=== PATIENT | female | born 1995 | race Caucasian/White ===

== ENCOUNTER 2021-08-29 10:23 | Outpatient (CLI) | payer OTHER ==
[2021-08-29 13:26] VITALS: BP 130/81; PULSE 83; RESP 16; TEMP 98
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
== END 2021-08-29 13:20 | disposition home or self-care (01) ==
LOC: FBPOP 10:23
PROVIDERS: ATTEND Obstetrics & Gynecology
DX: O26.893 Other specified pregnancy related conditions, third trimester (principal); Z3A.30 30 weeks gestation of pregnancy
CPT/HCPCS: 59025; G0463; 99213

== ENCOUNTER → 2022-05-22 | Outpatient (CLI) | payer OTHER ==
--- NOTE | 2022-05-22 19:45 | XR ---
EXAMINATION TYPE: XR Hip Complete 2 views RT, XR knee 4V RT DATE OF EXAM: 05/22/2022 Comparison: None Clinical History: 26-year-old female M25.561 PAIN IN RIGHT KNEE Findings: Right hip: Coxa valgus noted. Possible chronic congenital finding. Either tiny os acetabuli or degenerative labr al ossification noted. Slight anterior femoral head neck junction osseous excrescence. Right hip join t space is maintained. No acute fracture, subluxation, dislocation. Right knee: No knee joint effusion. Extensor mechanism is intact. No acute fracture, subluxation, dislocation. Pa tella remains appropriately situated along the trochlear groove. Impression: 1. Right hip: Coxa valgus. Either a tiny os acetabuli or a degenerative labral ossification. Given an anterior femoral head neck junction osseous excrescence, correlate for any symptoms of femoral aceta bular impingement syndrome. 2. Right knee: No acute osseous abnormality seen.
== END | disposition home or self-care (01) ==
LOC: RADXRMAIN 15:07
PROVIDERS: ATTEND Nurse Practitioner Family
DX: M25.561 Pain in right knee (principal)
CPT/HCPCS: 73502

== ENCOUNTER → 2023-06-26 | Outpatient (CLI) | payer OTHER ==
--- NOTE | 2023-06-26 16:16 | XR ---
EXAMINATION TYPE: XR hand complete bilateral DATE OF EXAM: 06/26/2023 COMPARISON: NONE HISTORY: 27-year-old female R52 bilateral hand pain TECHNIQUE: 3 views each side FINDINGS: There is ulnar-sided soft tissue swelling greater on the right. No acute fracture, subluxat ion, or dislocation is seen. No marginal erosions are identified. No acute fracture, subluxation, or dislocation. IMPRESSION: Some ulnar-sided soft tissue swelling of both hands, more so on the right. No acute osseo us abnormality seen.
== END | disposition home or self-care (01) ==
LOC: RADXRMAIN 09:13
PROVIDERS: ATTEND Nurse Practitioner Family
DX: M79.89 Other specified soft tissue disorders (principal); M79.641 Pain in right hand; M79.642 Pain in left hand

== ENCOUNTER → 2023-11-17 | Outpatient (CLI) | payer OTHER ==
[2023-11-17 22:40] LABS: Basophils # (A) 0.05 X 10*3/uL (0.00-0.10); Basophils % (A) 0.7 %; Eosinophils # (A) 0.21 X 10*3/uL (0.04-0.35); Eosinophils % (A) 2.7 %; HCT 40.4 % (37.2-46.3); HGB 12.7 g/dL (12.0-15.0); Lymphocytes # (A) 1.69 X 10*3/uL (0.90-5.00); Lymphocytes % (A) 22.1 %; MCH 28.2 pg (27.0-32.0); MCHC 31.4 g/dL (32.0-37.0); MCV 89.8 FL (80.0-97.0); Mean Platelet Volume 12.4 FL (9.5-12.2); Monocytes # (A) 0.43 X 10*3/uL (0.20-1.00); Monocytes % (A) 5.6 %; NRBC Per 100 WBC 0 X 10*3/uL (0.00-0.01); Neutrophils # (A) 5.25 X 10*3/uL (1.80-7.70); Neutrophils % (A) 68.6 %; Platelet Count 226 X 10*3/uL (140-440); WBC 7.65 X 10*3/uL (4.50-10.00)
[2023-11-17 23:58] LABS: ALT 14 U/L (8-44); AST 16 U/L (13-35); Albumin 4.5 g/dL (3.8-4.9); Albumin/Globulin Ratio 2.05 Ratio (1.60-3.17); Alkaline Phosphatase 76 U/L (41-126); BUN/Creat Ratio 17.67 Ratio (12.00-20.00); Blood Urea Nitrogen 10.6 mg/dL (9.0-27.0); Calcium 9.2 mg/dL (8.7-10.3); Carbon Dioxide 24.8 mmol/L (21.6-31.8); Chloride 104 mmol/L (96-109); Globulin 2.2 g/dL (1.6-3.3); Glucose 77 mg/dL (70-110); Potassium 4.4 mmol/L (3.5-5.5); Sodium 141 mmol/L (135-145); Total Bilirubin 0.6 mg/dL (0.3-1.2); Total Protein 6.7 g/dL (6.2-8.2)
== END | disposition home or self-care (01) ==
LOC: LABWHC1 10:20
PROVIDERS: ATTEND Family Medicine
DX: E66.9 Obesity, unspecified (principal); L65.9 Nonscarring hair loss, unspecified
CPT/HCPCS: 36415; 80053; 82306; 82607; 82746; 83036; 84403; 85025

== ENCOUNTER 2023-11-22 21:48 | Observation (INO) | payer OTHER ==
--- NOTE | 2023-11-22 22:15 | ED ---
Abdominal Pain HPI - General Chief Complaint: Abdominal Pain Stated Complaint: left side pain NV abd pain Time Seen by Provider: 11/22/23 22:03 Source: patient Mode of arrival: ambulatory Limitations: no limitations - History of Present Illness Initial Comments: 28-year-old female presenting with chief complaint of left flank pain. Patient states that she had some pain that started yesterday subsided. The pain started again today around 2 PM. Is a sharp pain that wraps around to the abdomen. She has no history of kidney stones. No dysuria or hematuria. No fevers or chills. She admits to nausea and vomiting. She did try taking Tylenol at home for her pain. No radiculopathy. No loss of bowel or bladder control or saddle paresthesia. - Related Data Home Medications Medication Instructions Recorded Confirmed Dextroamphetamine/Amphetamine 5 mg PO BID 11/23/23 11/23/23 [Adderall] Previous Rx's Medication Instructions Recorded Oxybutynin ER [Ditropan XL] 10 mg PO DAILY #30 tab 11/25/23 Sulfamethox-Tmp 800-160Mg [Bactrim 1 tab PO Q12HR 10 Days #20 tab 11/25/23 DS 800-160 mg] Allergies Allergy/AdvReac Type Severity Reaction Status Date / Time No Known Allergies Allergy Verified 11/23/23 11:10 Review of Systems ROS Statement: Those systems with pertinent positive or pertinent negative responses have been documented in the HPI. ROS Other: All systems not noted in ROS Statement are negative. Past Medical History History of Any Multi-Drug Resistant Organisms: None Reported Smoking Status: Never smoker General Exam Limitations: no limitations General appearance: alert, in no apparent distress Head exam: Present: atraumatic, normocephalic Eye exam: Present: normal appearance, EOMI Neck exam: Present: normal inspection. Absent: meningismus Respiratory exam: Absent: respiratory distress Cardiovascular Exam: Present: regular rate Back exam: Present: normal inspection, CVA tenderness (L). Absent: CVA tenderness (R), paraspinal tenderness Neurological exam: Present: alert, oriented X3 Psychiatric exam: Present: normal affect, normal mood Skin exam: Present: warm, dry Course Vital Signs 11/22/23 11/23/23 11/23/23 22:00 00:17 02:00 Temperature 97.8 F 98 F 98.0 F Pulse Rate 69 58 L 72 Respiratory 18 16 18 Rate Blood Pressure 124/81 107/62 130/66 O2 Sat by Pulse 98 100 100 Oximetry Medical Decision Making - Medical Decision Making Was pt. sent in by a medical professional or institution (FEI Whelan, ACADEMY EDUCATION DIRECTOR, urgent care, hospital, or fci...) When possible be specific @ -[No] Did you speak to anyone other than the patient for history (EMS, parent, family, police, friend...)? What history was obtained from this source @ -[No] Did you review nursing and triage notes (agree or disagree)? Why? @ -[I reviewed and agree with nursing and triage notes] Were old charts reviewed (outside hosp., previous admission, EMS record, old EKG, old radiological studies, urgent care reports/EKG's, fci records)? Report findings @ -[No old charts were reviewed] Differential Diagnosis (chest pain, altered mental status, abdominal pain women, abdominal pain men, vaginal bleeding, weakness, fever, dyspnea, syncope, headache, dizziness, GI bleed, back pain, seizure, CVA, palpatations, mental health, musculoskeletal)? @ -MDM Differential Abdominal Pain Women: Appendicitis, Cholecystitis, diverticulosis, ischemic bowel, pancreatitis, hepatitis, UTI, gastroenteritis, AAA, incarcerated hernia, bowel obstruction, constipation, inflammatory bowel, hepatitis, peptic ulcer disease, splenic infarction, perforated viscus, vulvitis, ovarian torsion, PID, kidney stone, placenta abruption... This is not meant to be an all-inclusive list EKG interpreted by me (3pts min.). @ -[As above] X-rays interpreted by me (1pt min.). @ -[None done] CT interpreted by me (1pt min.). @ -CT shows obstructing 8 mm stone in the left UPJ. Mild hydronephrosis of the left kidney with left-sided perinephritic stranding U/S interpreted by me (1pt. min.). @ -[None done] What testing was considered but not performed or refused? (CT, X-rays, U/S, labs)? Why? @ -[None] What meds were considered but not given or refused? Why? @ -[None] Did you discuss the management of the patient with other professionals (professionals i.e. FEI Whelan, ACADEMY EDUCATION DIRECTOR, lab, RT, psych nurse, social media executive, lawyer criminal, teacher, conservation officer, heel caser)? Give summary @ -My attending spoke with the admitting physician Was smoking cessation discussed for >3mins.? @ -[No] Was critical care preformed (if so, how long)? @ -[No] Were there social determinants of health that impacted care today? How? (Homelessness, low income, unemployed, alcoholism, drug addiction, transportation, low edu. Level, literacy, decrease access to med. care, penitentiary, rehab)? @ -[No] Was there de-escalation of care discussed even if they declined (Discuss DNR or withdrawal of care, Hospice)? DNR status @ -[No] What co-morbidities impacted this encounter? (DM, HTN, Smoking, COPD, CAD, Cancer, CVA, ARF, Chemo, Hep., AIDS, mental health diagnosis, sleep apnea, morbid obesity)? @ -[None] Was patient admitted / discharged? Hospital course, mention meds given and route, prescriptions, significant lab abnormalities, going to OR and other pertinent info. @ -28-year-old female presenting with chief complaint of left-sided flank pain that started yesterday. Admits to nausea and vomiting. History and physical exam are conducted. Urine shows greater than [address] is positive for obstructing 8 mm stone to the side. Will be admitted for evaluation by urology. She is started on Rocephin. Urine culture sent. Patient is agreeable with this plan. I discussed this case with my attending Dr. Lyon. Undiagnosed new problem with uncertain prognosis? @ -[No] Drug Therapy requiring intensive monitoring for toxicity (Heparin, Nitro, Insulin, Cardizem)? @ -[No] Were any procedures done? @ -[No] Diagnosis/symptom? @ -Kidney stone, pyelonephritis Acute, or Chronic, or Acute on Chronic? @ -Acute Uncomplicated (without systemic symptoms) or Complicated (systemic symptoms)? @ -Complicated Side effects of treatment? @ -[No] Exacerbation, Progression, or Severe Exacerbation? @ -[No] Poses a threat to life or bodily function? How? (Chest pain, USA, MT, pneumonia, PE, COPD, DKA, ARF, appy, cholecystitis, CVA, Diverticulitis, Homicidal, Suicidal, threat to staff... and all critical care pts) @ -Yes - Lab Data Result diagrams: 11/25/23 09:31 11/25/23 09:31 Lab Results 11/23/23 11/23/23 11/23/23 Range/Units 00:02 00:02 01:14 WBC 16.7 H (3.8-10.6) k/uL RBC 4.04 (3.80-5.40) m/uL Hgb 12.0 (11.4-16.0) gm/dL Hct 35.9 (34.0-46.0) % MCV 89.0 (80.0-100.0) fL MCH 29.7 (25.0-35.0) pg MCHC 33.3 (31.0-37.0) g/dL RDW 12.4 (11.5-15.5) % Plt Count 166 (150-450) k/uL MPV 10.4 Neutrophils % 90 % Lymphocytes % 4 % Monocytes % 5 % Eosinophils % 1 % Basophils % 0 % Neutrophils # 15.0 H (1.3-7.7) k/uL Lymphocytes # 0.6 L (1.0-4.8) k/uL Monocytes # 0.8 (0-1.0) k/uL Eosinophils # 0.1 (0-0.7) k/uL Basophils # 0.0 (0-0.2) k/uL Sodium 134 L (137-145) mmol/L Potassium 3.9 (3.5-5.1) mmol/L Chloride 104 (98-107) mmol/L Carbon Dioxide 27 (22-30) mmol/L Anion Gap 3 mmol/L BUN 16 (7-17) mg/dL Creatinine 0.70 (0.52-1.04) mg/dL Est GFR (CKD-EPI)AfAm >90 (>60 ml/min/1.73 sqM) Est GFR (CKD-EPI)NonAf >90 (>60 ml/min/1.73 sqM) Glucose 114 H (74-99) mg/dL Calcium 9.2 (8.4-10.2) mg/dL Total Bilirubin 0.6 (0.2-1.3) mg/dL AST 20 (14-36) U/L ALT 16 (4-34) U/L Alkaline Phosphatase 79 (38-126) U/L Total Protein 6.2 L (6.3-8.2) g/dL Albumin 3.9 (3.5-5.0) g/dL Urine Color Light Yellow Urine Appearance Cloudy H (Clear) Urine pH 5.5 (5.0-8.0) Ur Specific [place] 1.022 (1.001-1.035) Urine Protein Trace H (Negative) Urine Glucose (UA) Negative (Negative) Urine Ketones 2+ H (Negative) Urine Blood Negative (Negative) Urine Nitrite Negative (Negative) Urine Bilirubin Negative (Negative) Urine Urobilinogen <2.0 (<2.0) mg/dL Ur Leukocyte Esterase Large H (Negative) Urine RBC 2 (0-5) /hpf Urine WBC >182 H (0-5) /hpf Ur Squamous Epith Cells 7 H (0-4) /hpf Amorphous Sediment Rare H (None) /hpf Urine Bacteria Rare H (None) /hpf Hyaline Casts 1 (0-2) /lpf Urine Mucus Rare H (None) /hpf Urine HCG, Qual (Not Detectd) 11/23/23 Range/Units 01:14 WBC (3.8-10.6) k/uL RBC (3.80-5.40) m/uL Hgb (11.4-16.0) gm/dL Hct (34.0-46.0) % MCV (80.0-100.0) fL MCH (25.0-35.0) pg MCHC (31.0-37.0) g/dL RDW (11.5-15.5) % Plt Count (150-450) k/uL MPV Neutrophils % % Lymphocytes % % Monocytes % % Eosinophils % % Basophils % % Neutrophils # (1.3-7.7) k/uL Lymphocytes # (1.0-4.8) k/uL Monocytes # (0-1.0) k/uL Eosinophils # (0-0.7) k/uL Basophils # (0-0.2) k/uL Sodium (137-145) mmol/L Potassium (3.5-5.1) mmol/L Chloride (98-107) mmol/L Carbon Dioxide (22-30) mmol/L Anion Gap mmol/L BUN (7-17) mg/dL Creatinine (0.52-1.04) mg/dL Est GFR (CKD-EPI)AfAm (>60 ml/min/1.73 sqM) Est GFR (CKD-EPI)NonAf (>60 ml/min/1.73 sqM) Glucose (74-99) mg/dL Calcium (8.4-10.2) mg/dL Total Bilirubin (0.2-1.3) mg/dL AST (14-36) U/L ALT (4-34) U/L Alkaline Phosphatase (38-126) U/L Total Protein (6.3-8.2) g/dL Albumin (3.5-5.0) g/dL Urine Color Urine Appearance (Clear) Urine pH (5.0-8.0) Ur Specific [place] (1.001-1.035) Urine Protein (Negative) Urine Glucose (UA) (Negative) Urine Ketones (Negative) Urine Blood (Negative) Urine Nitrite (Negative) Urine Bilirubin (Negative) Urine Urobilinogen (<2.0) mg/dL Ur Leukocyte Esterase (Negative) Urine RBC (0-5) /hpf Urine WBC (0-5) /hpf Ur Squamous Epith Cells (0-4) /hpf Amorphous Sediment (None) /hpf Urine Bacteria (None) /hpf Hyaline Casts (0-2) /lpf Urine Mucus (None) /hpf Urine HCG, Qual Not Detected (Not Detectd) Disposition Clinical Impression: Kidney stone, Pyelonephritis Disposition: ADMITTED IP TO THIS [facility] Condition: Good Time of Disposition: 01:54
[2023-11-22] MEDS: KETOROLAC 15 MG/ML 1 ML VIAL IVP STA (23:40)
[2023-11-22] MEDS: ONDANSETRON 4 MG/2 ML VIAL IVP STA (23:42)
[2023-11-22] MEDS: SODIUM CHLORIDE 0.9% 1,000 ML IV ONE (23:47)
--- NOTE | 2023-11-23 00:34 | CT ---
EXAM: CT Abdomen and Pelvis Without Intravenous Contrast CLINICAL HISTORY: ITS.REASON CT Reason: L flank pain TECHNIQUE: Axial computed tomography images of the abdomen and pelvis without intravenous contrast. CTDI is 11.6 mGy and DLP is 656.6 mGy-cm. This CT exam was performed using one or more of the following dose reduction techniques: automated exposure control, adjustment of the mA and/or kV according to patient size, and/or use of iterative reconstruction technique. COMPARISON: No relevant prior studies available. FINDINGS: Lung bases: Unremarkable. No mass. No consolidation. ABDOMEN: Liver: Unremarkable. Gallbladder and bile ducts: Unremarkable. No calcified stones. No ductal dilation. Pancreas: Unremarkable. No ductal dilation. Spleen: Unremarkable. No splenomegaly. Adrenals: Unremarkable. No mass. Kidneys and ureters: Obstructing 8 mm stone in the left UPJ. Mild hydronephrosis of the left kidney with left-sided perinephric stranding. Nonobstructing 3 mm right mid pole renal stone. Stomach and bowel: Diverticulosis, without acute diverticulitis. No small bowel obstruction. No free intraperitoneal air. PELVIS: Appendix: Normal appendix. Bladder: Decompressed urinary bladder. No stones. Reproductive: Unremarkable as visualized. ABDOMEN and PELVIS: Intraperitoneal space: Unremarkable. No free air. No significant fluid collection. Bones/joints: No acute fracture. No dislocation. Soft tissues: Unremarkable. Vasculature: Unremarkable. No abdominal aortic aneurysm. Lymph nodes: Unremarkable. No enlarged lymph nodes. IMPRESSION: Obstructing 8 mm stone in the left UPJ. Mild hydronephrosis of the left kidney with left-sided perinephric stranding.
[2023-11-23 00:35] LABS: Basophils % (A) 0 %; Eosinophils # (A) 0.1 k/uL (0-0.7); Eosinophils % (A) 1 %; HCT 35.9 % (34.0-46.0); Lymphocytes # (A) 0.6 k/uL (1.0-4.8); Lymphocytes % (A) 4 %; MCH 29.7 pg (25.0-35.0); MCHC 33.3 g/dL (31.0-37.0); Mean Platelet Volume 10.4; Monocytes # (A) 0.8 k/uL (0-1.0); Monocytes % (A) 5 %; Neutrophils % (A) 90 %; Platelet Count 166 k/uL (150-450); RBC 4.04 m/uL (3.80-5.40); RDW 12.4 % (11.5-15.5); WBC 16.7 k/uL (3.8-10.6)
[2023-11-23 00:55] LABS: ALT 16 U/L (4-34); AST 20 U/L (14-36); African American GFR (CKD) >90 (>60 ml/min/1.73 sqM); Albumin 3.9 g/dL (3.5-5.0); Alkaline Phosphatase 79 U/L (38-126); Anion Gap 3 mmol/L; Blood Urea Nitrogen 16 mg/dL (7-17); Calcium 9.2 mg/dL (8.4-10.2); Carbon Dioxide 27 mmol/L (22-30); Chloride 104 mmol/L (98-107); Glucose 114 mg/dL (74-99); Non-African American GFR(CKD) >90 (>60 ml/min/1.73 sqM); Potassium 3.9 mmol/L (3.5-5.1); Sodium 134 mmol/L (137-145); Total Bilirubin 0.6 mg/dL (0.2-1.3); Total Protein 6.2 g/dL (6.3-8.2)
[2023-11-23] MEDS: TAMSULOSIN 0.4 MG CAP.ER.24H PO STA (01:11)
[2023-11-23] MEDS: SODIUM CHLORIDE 0.9% 1,000 ML IV ONE ×2 (01:11→11:51)
[2023-11-23] MEDS: MORPHINE SULFATE 4 MG/ML SYRINGE IVP STA (01:20)
[2023-11-23] MEDS: MORPHINE SULFATE 2 MG/ML SYRINGE IVP STA (01:21)
[2023-11-23 01:29] LABS: Amorphous Sediment,Urine Rare /hpf; Appearance,Urine Cloudy (Clear); Bacteria,Urine Rare /hpf; Bilirubin,Urine Negative (Negative); Blood,Urine Negative (Negative); Color,Urine Light Yellow; Glucose,Urine (UA) Negative (Negative); Hyaline Casts,Urine 1 /lpf (0-2); Ketones,Urine 2+ (Negative); Leukocyte Esterase,Urine Large (Negative); Mucus,Urine Rare /hpf; Nitrite,Urine Negative (Negative); PH, Urine 5.5 (5.0-8.0); Protein,Urine Trace (Negative); RBC,Urine 2 /hpf (0-5); Specific Gravity,Urine 1.022 (1.001-1.035); Squamous Epithelial Cell,Urine 7 /hpf (0-4); Urobilinogen,Urine <2.0 mg/dL (<2.0); WBC,Urine >182 /hpf (0-5)
[2023-11-23] MEDS ORDERED: cefTRIAXone IN SWFI 1,000 MG/10 ML SYRINGE IVP STA (01:38)
[2023-11-23] MEDS: SODIUM CHLORIDE 0.9% 1,000 ML IV SCH (01:49)
[2023-11-23] MEDS: cefTRIAXone IN SWFI 1,000 MG/10 ML SYRINGE IVP STA (02:19)
[2023-11-23] MEDS ORDERED: ONDANSETRON 4 MG/2 ML VIAL IVP PRN (02:58)
[2023-11-23] MEDS ORDERED: NALOXONE 0.4 MG/ML 1 ML VIAL IV PRN (02:58)
[2023-11-23] MEDS: KETOROLAC 15 MG/ML 1 ML VIAL IVP PRN (04:27)
[2023-11-23] MEDS: ACETAMINOPHEN IV (For NPO) 1,000 MG in EMPTY BAG 1 BAG IVPB PRN (05:51)
[2023-11-23] MEDS: IV FLUID CONTINUATION 1,000 ML IV ONE ×2 (07:09)
[2023-11-23] MEDS: LACTATED RINGERS 1,000 ML IV ONE ×3 (07:25→09:55)
[2023-11-23] MEDS: ONDANSETRON 4 MG/2 ML VIAL IVP ONE (07:29)
[2023-11-23] MEDS: DEXAMETHASONE SOD PHOSPHATE 4 MG/ML 1 ML VIAL IVP ONE (07:31)
[2023-11-23] MEDS: SCOPOLAMINE 1 MG/72 HR PATCH TRANSDERM ONE (07:31)
--- NOTE | 2023-11-23 07:35 | P.GSHP ---
History of Present Illness H&P Date: 11/23/23 Chief Complaint: Left ureteral stone This is a 28-year-old female that was admitted last night with intractable left- sided flank pain secondary to an 8 mm left ureteral stone. She indicated pain is associated with nausea and vomiting. Denied any dysuria or gross hematuria. No previous history of kidney stone in the ER she underwent a CT abdomen pelvis that showed a 8 mm left-sided proximal ureteral stone with hydronephrosis. Urine analysis on presentation was concerning for UTI. This morning she spiked a fever of 103 and was tachycardic at 116. She is still having left flank pain this morning - Constitutional Constitutional: Reports chills, Reports fever, Reports weakness - EENT Ears, nose, mouth and throat: Denies headache, Denies sore throat - Cardiovascular Cardiovascular: Denies chest pain, Denies shortness of breath - Respiratory Respiratory: Denies cough, Denies 7 - Gastrointestinal Gastrointestinal: Reports abdominal pain, Reports nausea, Reports vomiting - Genitourinary (Female) Genitourinary: Reports flank pain, Denies dysuria, Denies hematuria - Musculoskeletal Musculoskeletal: Denies myalgias Past Medical History Past Medical History: Asthma History of Any Multi-Drug Resistant Organisms: None Reported Past Surgical History: Section, Orthopedic Surgery Additional Past Surgical History / Comment(s): right foot surgery Past Anesthesia/Blood Transfusion Reactions: No Reported Reaction Smoking Status: Never smoker Medications and Allergies Home Medications Medication Instructions Recorded Confirmed Type Pnv No.95/Ferrous Fum/Folic AC 1 tablet PO DAILY 08/29/21 08/29/21 History [ Multivitamin Tablet] Sertraline [Zoloft] 25 mg PO DAILY 08/29/21 08/29/21 History Allergies Allergy/AdvReac Type Severity Reaction Status Date / Time No Known Allergies Allergy Verified 11/22/23 22:02 Surgical - Exam Vital Signs Temp Pulse Resp BP Pulse Ox 97.8 F 69 18 124/81 98 11/22/23 22:00 11/22/23 22:00 11/22/23 22:00 11/22/23 22:00 11/22/23 22:00 - General no distress, moderate pain - Eyes normal ocular movement, no pale - ENT normal nares, normal mucosa - Respiratory normal expansion, normal respiratory effort - Abdomen Abdomen: soft, tender, no distended - Psychiatric oriented to time, oriented to person, oriented to place Results - Labs 11/23/23 00:02 11/23/23 00:02 Abnormal Lab Results - Last 24 Hours (Table) 11/23/23 11/23/23 11/23/23 Range/Units 00:02 00:02 01:14 WBC 16.7 H (3.8-10.6) k/uL Neutrophils # 15.0 H (1.3-7.7) k/uL Lymphocytes # 0.6 L (1.0-4.8) k/uL Sodium 134 L (137-145) mmol/L Glucose 114 H (74-99) mg/dL Total Protein 6.2 L (6.3-8.2) g/dL Urine Appearance Cloudy H (Clear) Urine Protein Trace H (Negative) Urine Ketones 2+ H (Negative) Ur Leukocyte Esterase Large H (Negative) Urine WBC >182 H (0-5) /hpf Ur Squamous Epith Cells 7 H (0-4) /hpf Amorphous Sediment Rare H (None) /hpf Urine Bacteria Rare H (None) /hpf Urine Mucus Rare H (None) /hpf Diabetes panel 11/23/23 Range/Units 00:02 Sodium 134 L (137-145) mmol/L Potassium 3.9 (3.5-5.1) mmol/L Chloride 104 (98-107) mmol/L Carbon Dioxide 27 (22-30) mmol/L BUN 16 (7-17) mg/dL Creatinine 0.70 (0.52-1.04) mg/dL Glucose 114 H (74-99) mg/dL Calcium 9.2 (8.4-10.2) mg/dL AST 20 (14-36) U/L ALT 16 (4-34) U/L Alkaline Phosphatase 79 (38-126) U/L Total Protein 6.2 L (6.3-8.2) g/dL Albumin 3.9 (3.5-5.0) g/dL Calcium panel 11/23/23 Range/Units 00:02 Calcium 9.2 (8.4-10.2) mg/dL Albumin 3.9 (3.5-5.0) g/dL Pituitary panel 11/23/23 Range/Units 00:02 Sodium 134 L (137-145) mmol/L Potassium 3.9 (3.5-5.1) mmol/L Chloride 104 (98-107) mmol/L Carbon Dioxide 27 (22-30) mmol/L BUN 16 (7-17) mg/dL Creatinine 0.70 (0.52-1.04) mg/dL Glucose 114 H (74-99) mg/dL Calcium 9.2 (8.4-10.2) mg/dL Adrenal panel 11/23/23 Range/Units 00:02 Sodium 134 L (137-145) mmol/L Potassium 3.9 (3.5-5.1) mmol/L Chloride 104 (98-107) mmol/L Carbon Dioxide 27 (22-30) mmol/L BUN 16 (7-17) mg/dL Creatinine 0.70 (0.52-1.04) mg/dL Glucose 114 H (74-99) mg/dL Calcium 9.2 (8.4-10.2) mg/dL Total Bilirubin 0.6 (0.2-1.3) mg/dL AST 20 (14-36) U/L ALT 16 (4-34) U/L Alkaline Phosphatase 79 (38-126) U/L Total Protein 6.2 L (6.3-8.2) g/dL Albumin 3.9 (3.5-5.0) g/dL Assessment and Plan Assessment: 28-year-old female with sepsis secondary to an 8 mm left-sided proximal ureteral stone. Discussed with her given the obstructing stone in the UTI and sepsis I do recommend proceeding with stent insertion. Risk benefit and rationale of surgery was discussed in detail. Discussed she will eventually require left- sided ureteroscopy with holmium laser and stent removal as an outpatient once her UTI resolves -Keep n.p.o. -OR for cystoscopy and left-sided stent insertion
[2023-11-23] MEDS ORDERED: fentaNYL (PF) 50 MCG/ML 2 ML AMP ONE (07:41)
[2023-11-23] MEDS ORDERED: KETAMINE HCL IN 0.9 % NACL 50 MG/5 ML SYRINGE ONE (07:41)
[2023-11-23] MEDS ORDERED: MIDAZOLAM 2 MG/2 ML VIAL ONE (07:41)
[2023-11-23] MEDS ORDERED: PROPOFOL 10 MG/ML 20 ML VIAL IV ONE (07:41)
--- NOTE | 2023-11-23 08:12 | P.OP ---
Date of Procedure: 11/23/23 Preoperative Diagnosis: Left ureteral stone, UTI Postoperative Diagnosis: Same Procedure(s) Performed: Cystoscopy and left stent insertion Implants: 6 Tamazight by 26 cm stent in the left ureter Anesthesia: MAC Surgeon: Augie Bolivar Estimated Blood Loss (ml): 1 Pathology: none sent Condition: stable Disposition: PACU Indications for Procedure: 28-year-old female with sepsis secondary to an 8 mm left-sided proximal ureteral stone. Discussed with her given the obstructing stone in the UTI and sepsis I do recommend proceeding with stent insertion. Risk benefit and rationale of surgery was discussed in detail. Discussed she will eventually require left- sided ureteroscopy with holmium laser and stent removal as an outpatient once her UTI resolves Operative Findings: Cloudy urine drained from the left collecting system Description of Procedure: Patient brought to the operating room, sedation was induced. She was prepped and draped in sterile fashion placed in dorsolithotomy position. Cystoscopy fitted with a 21 Tamazight sheath was inserted per urethra, brief cystoscopy was performed showed no abnormality within the bladder. Attention was then carried to the left ureteral orifice which was intubated with a sensor wire, the wire was advanced under fluoroscopy into the kidney. Next a ureteral stent was passed over the wire, the proximal curl was visualized on fluoroscopy and the distal curl was visualized using the cystoscope. Cloudy urine drained from the collecting system. Patient was awakened from anesthesia and taken to recovery in stable condition
--- NOTE | 2023-11-23 09:34 | FL ---
EXAMINATION TYPE: FL guidance operating room Intraoperative/procedural fluoroscopic services were pro vided. Total fluoroscopy time is 2.1 seconds with a total of 2 submitted images to PACS. Please see t he operative/procedural note for further details. DAP: 0.2204 Gycm2
--- NOTE | 2023-11-23 12:54 | P.CONS ---
History of Present Illness - History of Present Illness Patient is a pleasant 28 years old female. Patient presents because of left flank pain for about 2 days duration, pain was more severe on admission however currently she rated about 3/10 felt like sharp or nonspecific. Also patient on admission was febrile of 101 overnight and she was hypotensive, currently systolic blood pressure is 80s to 90s She is fully awake and oriented though She denies chest pain or dyspnea, she had diarrhea yesterday but stopped now and no abdominal pain. No headache dizziness weakness or numbness. No dyspnea or coughing. She denies smoking alcohol or illicit drugs. On admission she has leukocytosis of 16.7, BMP and liver enzymes were unrem arkable. Urine analysis is showing evidence of infection Urine hCG is negative she has CT of the abdomen and pelvis with contrast:.Showing obstructing 8 mm stone in the left ureteropelvic junction. Also there is some evidence of mild left-sided hydronephrosis and left-sided perinephric stranding Patient evaluated by urology service and patient underwent Cystoscopy and left stent insertion today and patient tolerated the procedure well. Patient was started on ceftriaxone 2 g. And because of fever and hypertension medical service were consulted Patient received 4 L of normal saline today Review of Systems Review of systems CONSTITUTIONAL: No fever, no malaise, no fatigue. HEENT: No recent visual problems or hearing problems. Denied any sore throat. CARDIOVASCULAR: No orthopnea, PND, no palpitations, no syncope. PULMONARY: No shortness of breath, no cough, no hemoptysis. GASTROINTESTINAL: No diarrhea, no nausea, no vomiting, no abdominal pain. Normo active bowel sounds. NEUROLOGICAL: No headaches, no weakness, no numbness. HEMATOLOGICAL: Denies any bleeding or petechiae. GENITOURINARY: Denies any burning micturition, frequency, or urgency. MUSCULOSKELETAL/RHEUMATOLOGICAL: Denies any joint pain, swelling, or any muscle pain. ENDOCRINE: Denies any polyuria or polydipsia. Past Medical History Past Medical History: Asthma History of Any Multi-Drug Resistant Organisms: None Reported Past Surgical History: Section, Orthopedic Surgery Additional Past Surgical History / Comment(s): right foot surgery Past Anesthesia/Blood Transfusion Reactions: No Reported Reaction Smoking Status: Never smoker Medications and Allergies Home Medications Medication Instructions Recorded Confirmed Type Dextroamphetamine/Amphetamine 5 mg PO BID 11/23/23 11/23/23 History [Adderall] Allergies Allergy/AdvReac Type Severity Reaction Status Date / Time No Known Allergies Allergy Verified 11/23/23 11:10 Physical Exam Vitals: Vital Signs Temp Pulse Pulse Resp BP BP BP 11/23/23 12:03 71 11/23/23 11:52 68 88/55 11/23/23 11:31 56 L 85/56 11/23/23 11:16 62 87/58 11/23/23 11:14 56 L 88/58 11/23/23 11:01 63 85/56 11/23/23 10:48 76 89/42 11/23/23 10:32 98.0 F 67 16 90/60 11/23/23 10:03 63 12 11/23/23 09:48 65 12 11/23/23 09:33 65 13 100/50 11/23/23 09:18 69 11 L 11/23/23 09:03 75 13 11/23/23 08:48 96 18 11/23/23 08:36 116 H 14 11/23/23 08:33 87 12 11/23/23 08:24 88 12 11/23/23 08:18 97.9 F 87 12 11/23/23 07:21 99.3 F 106 H 16 11/23/23 06:51 99.8 F H 109 H 16 77/42 11/23/23 05:26 103.0 F H 11/23/23 04:16 101.0 F H 115 H 16 11/23/23 02:00 98.0 F 72 18 130/66 11/23/23 00:17 98 F 58 L 16 107/62 11/22/23 22:00 97.8 F 69 18 124/81 BP Pulse Ox 11/23/23 12:03 95/66 11/23/23 11:52 11/23/23 11:31 98 11/23/23 11:16 98 11/23/23 11:14 97 11/23/23 11:01 97 11/23/23 10:48 97 11/23/23 10:32 99 11/23/23 10:03 83/45 97 11/23/23 09:48 94/55 97 11/23/23 09:33 84/53 96 11/23/23 09:18 89/54 96 11/23/23 09:03 87/50 92 L 11/23/23 08:48 86/49 96 11/23/23 08:36 84/47 99 11/23/23 08:33 84/48 99 11/23/23 08:24 86/50 99 11/23/23 08:18 78/43 99 11/23/23 07:21 94/52 95 11/23/23 06:51 88/50 95 11/23/23 05:26 11/23/23 04:16 116/63 98 11/23/23 02:00 100 11/23/23 00:17 100 11/22/23 22:00 98 Intake and Output 11/22/23 11/23/23 11/23/23 22:59 06:59 14:59 Intake Total 900 3400 Balance 900 3400 Intake: IV 3400 Intake, IV Titration 900 Amount ACETAMINOPHEN IV (For NPO 100 ) 1,000 mg In Empty Bag 1 bag @ 400 mls/hr IVPB Q6HR PRN Rx#:[id number] Sodium Chloride 0.9% 1, 800 000 ml @ 130 mls/hr IV . Q7H42M [facility] Rx#:[id number] Other: # Voids 1 Weight 90.718 kg 90.718 kg GENERAL: The patient is alert and oriented x3, not in any acute distress. Well developed, well nourished. HEENT: Pupils are round and equally reacting to light. EOMI. No scleral icterus. No conjunctival pallor. Normocephalic, atraumatic. No pharyngeal erythema. No thyromegaly. CARDIOVASCULAR: S1 and S2 present. No murmurs, rubs, or gallops. PULMONARY: Chest is clear to auscultation, no wheezing , no crackles. ABDOMEN: Soft, nontender, nondistended, normoactive bowel sounds. No palpable organomegaly. MUSCULOSKELETAL: No joint swelling or deformity. EXTREMITIES: No cyanosis, clubbing, or pedal edema. NEUROLOGICAL: Gross neurological examination did not reveal any focal deficits. SKIN: No rashes. no petechiae. Results CBC & Chem 7: 11/23/23 00:02 11/23/23 00:02 Labs: Abnormal Lab Results - Last 24 Hours (Table) 11/23/23 11/23/23 11/23/23 Range/Units 00:02 00:02 01:14 WBC 16.7 H (3.8-10.6) k/uL Neutrophils # 15.0 H (1.3-7.7) k/uL Lymphocytes # 0.6 L (1.0-4.8) k/uL Sodium 134 L (137-145) mmol/L Glucose 114 H (74-99) mg/dL Total Protein 6.2 L (6.3-8.2) g/dL Urine Appearance Cloudy H (Clear) Urine Protein Trace H (Negative) Urine Ketones 2+ H (Negative) Ur Leukocyte Esterase Large H (Negative) Urine WBC >182 H (0-5) /hpf Ur Squamous Epith Cells 7 H (0-4) /hpf Amorphous Sediment Rare H (None) /hpf Urine Bacteria Rare H (None) /hpf Urine Mucus Rare H (None) /hpf Assessment and Plan Assessment: Severe acute urinary tract infection Obstructive 8 mm left ureteral stone with mild left hydronephrosis and left- sided perinephric stranding Sepsis, severe secondary to above. Present on admission Hypotension secondary to above Obesity with BMI of 32.3 Asthma, not an active issue. Plan: Continue with a aggressive fluid hydration Continue with normal saline 130 mL/h and monitor blood pressure and input and output Start midodrine x 2 days Continue with ceftriaxone and follow-up urine culture and blood culture Urology service team on the case already. Patient's status post stent placement to the left ureter Labs and medication were reviewed.. Continue same treatment. Continue with symptomatic treatment. Resume home medication. Monitor labs and vitals. DVT and GI prophylaxis. Further recommendations as per clinical course of the patient DVT prophylaxis: Subcutaneous heparin GI Prophylaxis: Pepcid PT/OT: Pending Prognosis is guarded
[2023-11-23] MEDS: MIDODRINE 5 MG TAB PO SCH (16:47)
[2023-11-23] MEDS: HEPARIN SODIUM,PORCINE 5,000 UNIT/ML 1 ML VIAL SQ SCH (20:01)
[2023-11-23] MEDS: FAMOTIDINE 20 MG/2 ML VIAL IV SCH (20:01)
[2023-11-24 09:17] LABS: Basophils # (A) 0.04 X 10*3/uL (0.00-0.10); Basophils % (A) 0.2 %; Eosinophils # (A) 0.08 X 10*3/uL (0.04-0.35); Eosinophils % (A) 0.5 %; HCT 31.6 % (37.2-46.3); HGB 10.1 g/dL (12.0-15.0); Lymphocytes # (A) 2.26 X 10*3/uL (0.90-5.00); Lymphocytes % (A) 13.6 %; MCH 29.2 pg (27.0-32.0); MCV 91.3 FL (80.0-97.0); Mean Platelet Volume 13.5 FL (9.5-12.2); Monocytes # (A) 0.89 X 10*3/uL (0.20-1.00); Monocytes % (A) 5.4 %; NRBC Per 100 WBC 0 X 10*3/uL (0.00-0.01); Neutrophils # (A) 13.21 X 10*3/uL (1.80-7.70); Neutrophils % (A) 79.8 %; Platelet Count 145 X 10*3/uL (140-440); RBC 3.46 X 10*6/uL (4.10-5.20); RDW 12.7 % (11.5-14.5); WBC 16.56 X 10*3/uL (4.50-10.00)
[2023-11-24 09:56] LABS: BUN/Creat Ratio 14.71 Ratio (12.00-20.00); Blood Urea Nitrogen 10.3 mg/dL (9.0-27.0); Calcium 7.9 mg/dL (8.7-10.3); Carbon Dioxide 20.7 mmol/L (21.6-31.8); Chloride 111 mmol/L (96-109); Glucose 91 mg/dL (70-110); Potassium 3.7 mmol/L (3.5-5.5); Sodium 142 mmol/L (135-145)
[2023-11-24] MEDS: polyethylene glycoL 3350 17 GM POWD.PACK PO SCH (10:38)
[2023-11-24] MEDS: ACETAMINOPHEN TAB 325 MG TAB PO PRN (10:38)
--- NOTE | 2023-11-24 12:03 | P.PN ---
Subjective Progress Note Date: 11/24/23 Status post left stent insertion for septic stone. Having mild left flank pain and bladder pressure. Denies any fevers or chills. Urine culture is growing gram-negative bacilli Objective - Vital Signs Vital signs: Vital Signs Temp 98.8 F 11/24/23 11:33 Pulse 78 11/24/23 11:33 Resp 18 11/24/23 11:33 BP 106/61 11/24/23 11:33 Pulse Ox 100 11/24/23 11:33 FiO2 Intake & Output 11/23/23 11/24/23 11/24/23 18:59 06:59 18:59 Intake Total 3400 Balance 3400 Intake: IV 3400 Other: Voiding Method Toilet Toilet # Voids 1 2 - Constitutional General appearance: Present: no acute distress - Gastrointestinal General gastrointestinal: Present: soft. Absent: distended, tenderness - Psychiatric Psychiatric: Present: A&O x's 3 - Labs CBC & Chem 7: 11/24/23 04:22 11/24/23 04:22 Labs: Abnormal Lab Results - Last 24 Hours (Table) 11/24/23 11/24/23 Range/Units 04:22 04:22 WBC 16.56 H (4.50-10.00) X 10*3/uL RBC 3.46 L (4.10-5.20) X 10*6/uL Hgb 10.1 L (12.0-15.0) g/dL Hct 31.6 L (37.2-46.3) % MPV 13.5 H (9.5-12.2) FL Immature Gran # 0.08 H (0.00-0.04) X 10*3/uL Neutrophils # 13.21 H (1.80-7.70) X 10*3/uL Chloride 111 H (96-109) mmol/L Carbon Dioxide 20.7 L (21.6-31.8) mmol/L Calcium 7.9 L (8.7-10.3) mg/dL Microbiology - Last 24 Hours (Table) 11/23/23 01:14 Urine Culture - Preliminary Urine,Voided Gram Neg Bacilli Assessment and Plan Assessment: 28-year-old female with 8 mm left-sided proximal stone status post left-sided stent insertion for septic stone. She is afebrile today and blood pressure is stable. Her urine culture is growing gram-negative bacilli -Will await final urine and blood culture, will plan on discharge once cultures finalized -Will start on Ditropan for bladder pressure -Will arrange for outpatient left-sided ureteroscopy with holmium laser and stent removal
[2023-11-24] MEDS: OXYBUTYNIN XL 5 MG TAB.ER.24 PO SCH ×2 (12:35→20:01)
[2023-11-24] MEDS: LACTATED RINGERS 1,000 ML IV SCH (12:36)
--- NOTE | 2023-11-24 18:56 | P.PN ---
Subjective Progress Note Date: 11/24/23 Patient is a pleasant 28 years old female. Patient presents because of left flank pain for about 2 days duration, pain was more severe on admission however currently she rated about 3/10 felt like sharp or nonspecific. Also patient on admission was febrile of 101 overnight and she was hypotensive, currently systolic blood pressure is 80s to 90s She is fully awake and oriented though She denies chest pain or dyspnea, she had diarrhea yesterday but stopped now and no abdominal pain. No headache dizziness weakness or numbness. No dyspnea or coughing. She denies smoking alcohol or illicit drugs. On admission she has leukocytosis of 16.7, BMP and liver enzymes were unremarkable. Urine analysis is showing evidence of infection Urine hCG is negative she has CT of the abdomen and pelvis with contrast :.Showing obstructing 8 mm stone in the left ureteropelvic junction. Also there is some evidence of mild left-sided hydronephrosis and left-sided perinephric stranding Patient evaluated by urology service and patient underwent Cystoscopy and left stent insertion today and patient tolerated the procedure well. Patient was started on ceftriaxone 2 g. And because of fever and hypertension medical service were consulted Patient received 4 L of normal saline today 11/24/2023 Patient is evaluated in follow-up today on the medical floor. She continues to report fullness in her suprapubic area as well as abdominal discomfort about 3-4 out of 10. She does not feel that she is completely emptying her bladder and a postvoid residual is done revealing 150 cc left in the urinary bladder. Patient is also reports having a good bowel movement over the last couple days and is requesting something to have a bowel movement and is given MiraLAX. Patient is status post left ureter stent for left-sided hydronephrosis and obstructive stone. Her urinalysis was abnormal patient is continued on IV ceftriaxone. Blood cultures remain negative and urinalysis is showing gram-negative bacilli. Review of Systems Constitutional: Denied any fatigue denied any fever. Cardio vascular: denied any chest pain, palpitations Gastrointestinal: denied any nausea, vomiting, diarrhea Pulmonary: Denied any shortness of breath cough Neurologic denied any new focal deficits All inpatient medications were reviewed and appropriate changes in these medications as dictated in the interval history and assessment and plan. PHYSICAL EXAMINATION: GENERAL: The patient is alert and oriented x3, not in any acute distress. Well developed, well nourished. HEENT: Pupils are round and equally reacting to light. EOMI. No scleral icterus. No conjunctival pallor. Normocephalic, atraumatic. No pharyngeal erythema. No thyromegaly. CARDIOVASCULAR: S1 and S2 present. No murmurs, rubs, or gallops. PULMONARY: Chest is clear to auscultation, no wheezing or crackles. ABDOMEN: Soft, nontender, nondistended, normoactive bowel sounds. No palpable organomegaly. MUSCULOSKELETAL: No joint swelling or deformity. EXTREMITIES: No cyanosis, clubbing, or pedal edema. NEUROLOGICAL: Gross neurological examination did not reveal any focal deficits. SKIN: No rashes. Assessment: Severe acute urinary tract infection Obstructive 8 mm left ureteral stone with mild left hydronephrosis and left-brian ed perinephric stranding status post left ureter stent Sepsis, severe secondary to above. Present on admission Hypotension secondary to above Obesity with BMI of 32.3 Asthma, not an active issue. GI prophylaxis DVT prophylaxis Full Code Plan: Due to the hyperchloremia we will adjust the fluids to LR at 75 mls/hr. Completed course of midodrine has been discontinued. Continue with ceftriaxone and follow-up urine culture and blood culture Urology service team on the case already. Patient's status post stent placement to the left ureter Continue to monitor post void residuals. Urology has started ditropan. Miralax daily for the constipation. DVT prophylaxis: Subcutaneous heparin GI Prophylaxis: Pepcid PT/OT: Pending Prognosis is guarded The impression and plan of care has been dictated by Judy Nichols, Nurse Practitioner as directed. Dr. Oral MD I have performed a history and physical examination and medical decision making of this patient, discussed the same with the dictator, and agree with the dictators assessment and plan as written, documented as a scribe. Based on total visit time, I have performed more than 50% of this visit. Objective - Vital Signs Vital signs: Vital Signs Temp 98.8 F 11/24/23 11:33 Pulse 78 11/24/23 11:33 Resp 18 11/24/23 11:33 BP 106/61 11/24/23 11:33 Pulse Ox 100 11/24/23 11:33 FiO2 Intake & Output 11/23/23 11/24/23 11/24/23 18:59 06:59 18:59 Intake Total 3400 600 Balance 3400 600 Intake: IV 3400 Intake, IV Titration 600 Amount Lactated Ringers 1,000 ml 600 @ 75 mls/hr IV .[id number] [facility] Rx#:[id number] Other: Voiding Method Toilet Toilet # Voids 1 2 - Labs CBC & Chem 7: 11/24/23 04:22 11/24/23 04:22 Labs: Abnormal Lab Results - Last 24 Hours (Table) 11/24/23 11/24/23 Range/Units 04:22 04:22 WBC 16.56 H (4.50-10.00) X 10*3/uL RBC 3.46 L (4.10-5.20) X 10*6/uL Hgb 10.1 L (12.0-15.0) g/dL Hct 31.6 L (37.2-46.3) % MPV 13.5 H (9.5-12.2) FL Immature Gran # 0.08 H (0.00-0.04) X 10*3/uL Neutrophils # 13.21 H (1.80-7.70) X 10*3/uL Chloride 111 H (96-109) mmol/L Carbon Dioxide 20.7 L (21.6-31.8) mmol/L Calcium 7.9 L (8.7-10.3) mg/dL Microbiology - Last 24 Hours (Table) 11/23/23 10:30 Blood Culture - Preliminary Blood 11/23/23 01:14 Urine Culture - Preliminary Urine,Voided Gram Neg Bacilli Assessment and Plan Time with Patient: Less than 30
[2023-11-24] MEDS: MORPHINE SULFATE 4 MG/ML SYRINGE IV PRN (22:51)
[2023-11-25 08:24] VITALS: RESP 18
[2023-11-25 10:14] LABS: Basophils % (A) 0 %; Eosinophils # (A) 0.1 k/uL (0-0.7); Eosinophils % (A) 2 %; HCT 34.7 % (34.0-46.0); HGB 10.5 gm/dL (11.4-16.0); Lymphocytes # (A) 1.6 k/uL (1.0-4.8); Lymphocytes % (A) 19 %; MCHC 30.2 g/dL (31.0-37.0); MCV 92.6 fL (80.0-100.0); Mean Platelet Volume 10.7; Monocytes # (A) 0.5 k/uL (0-1.0); Monocytes % (A) 6 %; Neutrophils # (A) 5.8 k/uL (1.3-7.7); Neutrophils % (A) 72 %; Platelet Count 157 k/uL (150-450); RBC 3.75 m/uL (3.80-5.40); RDW 12.6 % (11.5-15.5); WBC 8.1 k/uL (3.8-10.6)
[2023-11-25 10:26] LABS: African American GFR (CKD) >90 (>60 ml/min/1.73 sqM); Anion Gap 6 mmol/L; Blood Urea Nitrogen 7 mg/dL (7-17); Carbon Dioxide 22 mmol/L (22-30); Chloride 109 mmol/L (98-107); Glucose 109 mg/dL (74-99); Non-African American GFR(CKD) >90 (>60 ml/min/1.73 sqM); Potassium 3.8 mmol/L (3.5-5.1); Sodium 137 mmol/L (137-145)
--- NOTE | 2023-11-25 12:13 | XR ---
EXAMINATION TYPE: XR chest 2V DATE OF EXAM: 11/25/2023 COMPARISON: NONE HISTORY: Shortness of breath TECHNIQUE: Frontal and lateral views of the chest are obtained. FINDINGS: There are diffuse fluffy small airspace opacities consistent with diffuse inflammatory process. There are small bilateral pleural effusions. The heart size is normal in the pulmonary vasculature is not congested. There is no pneumothorax. The osseous structures are intact IMPRESSION: Acute cardiopulmonary disease as described above.
[2023-11-25 12:23] VITALS: BP 118/74; PULSE 79; TEMP 98.4
[2023-11-25] MEDS: FUROSEMIDE 10 MG/ML 4 ML VIAL IV STA (13:23)
--- NOTE | 2023-11-25 14:29 | P.DS ---
Providers Date of admission: 11/23/23 02:59 Attending physician: Augie Bolivar MD Consults: 11/23/23 11:44 Consult Physician Routine Consulting Provider: Bernabe Quach Consult Reason/Comments: UTI Do you want consulting provider notified?: Yes Primary care physician: Jose Chan [facility] Course: This is a 28-year-old female with a history of a left-sided ureteral stone, she presented to the hospital with sepsis secondary to her ureteral stone. Patient underwent left-sided stent insertion on November 22. She was admitted to the hospital postoperatively. Her urine culture did grow E. coli, blood cultures demonstrated no growth. She was discharged home on November 24, at time of discharge she was tolerating a diet, ambulating, pain was controlled. She was discharged home on 10-day course of Bactrim. She will be set up for a left-sided ureteroscopy with holmium laser and stent removal as an outpatient Patient Condition at Discharge: Fair Plan - Discharge Summary Discharge Rx Participant: No New Discharge Prescriptions: New Sulfamethox-Tmp 800-160Mg [Bactrim DS 800-160 mg] 1 tab PO Q12HR 10 Days #20 tab Oxybutynin ER [Ditropan XL] 10 mg PO DAILY #30 tab No Action Dextroamphetamine/Amphetamine [Adderall] 5 mg PO BID Discharge Medication List Dextroamphetamine/Amphetamine [Adderall] 5 mg PO BID 11/23/23 [History] Oxybutynin ER [Ditropan XL] 10 mg PO DAILY #30 tab 11/25/23 [Rx] Sulfamethox-Tmp 800-160Mg [Bactrim DS 800-160 mg] 1 tab PO Q12HR 10 Days #20 tab 11/25/23 [Rx] Follow up Appointment(s)/Referral(s): Augie Bolivar MD [STAFF PHYSICIAN] - 1 Week Jose Chan DO [Primary Care Provider] - 1-2 days Patient Instructions/Handouts: *[facility] - Cystoscopy Discharge Instructions, *[facility] - Scopalamine Patch Instructions, Ureteral Stent Placement (DC)
--- NOTE | 2023-11-25 15:49 | P.PN ---
Subjective Progress Note Date: 11/25/23 Patient is a pleasant 28 years old female. Patient presents because of left flank pain for about 2 days duration, pain was more severe on admission however currently she rated about 3/10 felt like sharp or nonspecific. Also patient on admission was febrile of 101 overnight and she was hypotensive, currently systolic blood pressure is 80s to 90s She is fully awake and oriented though She denies chest pain or dyspnea, she had diarrhea yesterday but stopped now and no abdominal pain. No headache dizziness weakness or numbness. No dyspnea or coughing. She denies smoking alcohol or illicit drugs. On admission she has leukocytosis of 16.7, BMP and liver enzymes were unremarkable. Urine analysis is showing evidence of infection Urine hCG is negative she has CT of the abdomen and pelvis with contrast :.Showing obstructing 8 mm stone in the left ureteropelvic junction. Also there is some evidence of mild left-sided hydronephrosis and left-sided perinephric stranding Patient evaluated by urology service and patient underwent Cystoscopy and left stent insertion today and patient tolerated the procedure well. Patient was started on ceftriaxone 2 g. And because of fever and hypertension medical service were consulted Patient received 4 L of normal saline today 11/24/2023 Patient is evaluated in follow-up today on the medical floor. She continues to report fullness in her suprapubic area as well as abdominal discomfort about 3-4 out of 10. She does not feel that she is completely emptying her bladder and a postvoid residual is done revealing 150 cc left in the urinary bladder. Patient is also reports having a good bowel movement over the last couple days and is requesting something to have a bowel movement and is given MiraLAX. Patient is status post left ureter stent for left-sided hydronephrosis and obstructive stone. Her urinalysis was abnormal patient is continued on IV ceftriaxone. Blood cultures remain negative and urinalysis is showing gram-negative bacilli. 11/25/2023 Patient is evaluated today in follow up. Has been started on ditropan with improvement in urinary outflow patient reports feeling less abdominal pressure. Her urine culture comes back positive for e.coli with some resistance noted on microsensitivities. Urology has recommended bactrim on discharge. Patient reports feeling short of breath and IV fluids were stopped a chest xray taken reveals small bilateral pleural effusions and patient will be given a dose of IV lasix for this. Patient is currently 98% on room air. Her white blood cell count has normalized to 8.1 today and renal function remains normal. Review of Systems Constitutional: Denied any fatigue denied any fever. Cardio vascular: denied any chest pain, palpitations Gastrointestinal: denied any nausea, vomiting, diarrhea Pulmonary: Denied any shortness of breath cough Neurologic denied any new focal deficits All inpatient medications were reviewed and appropriate changes in these medications as dictated in the interval history and assessment and plan. PHYSICAL EXAMINATION: GENERAL: The patient is alert and oriented x3, not in any acute distress. Well developed, well nourished. HEENT: Pupils are round and equally reacting to light. EOMI. No scleral icterus. No conjunctival pallor. Normocephalic, atraumatic. No pharyngeal erythema. No thyromegaly. CARDIOVASCULAR: S1 and S2 present. No murmurs, rubs, or gallops. PULMONARY: Chest is clear to auscultation, no wheezing or crackles. ABDOMEN: Soft, nontender, nondistended, normoactive bowel sounds. No palpable organomegaly. MUSCULOSKELETAL: No joint swelling or deformity. EXTREMITIES: No cyanosis, clubbing, or pedal edema. NEUROLOGICAL: Gross neurological examination did not reveal any focal deficits. SKIN: No rashes. Assessment: Severe acute urinary tract infection Obstructive 8 mm left ureteral stone with mild left hydronephrosis and left- sided perinephric stranding status post left ureter stent Sepsis, severe secondary to above. Present on admission Shortness of breath due to mild volume overload secondary to IV fluids. Chest xray reveals pleural effusions with no history of heart failure. Given a dose of IV lasix. Hypotension secondary to above Obesity with BMI of 32.3 Asthma, not an active issue. GI prophylaxis DVT prophylaxis Full Code Plan: hyperchloremia has resolved. Stop the IV fluids. Completed course of midodrine has been discontinued. Continue with ceftriaxone and follow-up urine culture completed. Urology recommending discharge on oral bactrim. Urology service team on the case already. Patient's status post stent placement to the left ureter Continue to monitor post void residuals. Urology has started ditropan. Give a dose of IV lasix and repeat BMP in the AM. Miralax daily for the constipation. DVT prophylaxis: Subcutaneous heparin GI Prophylaxis: Pepcid PT/OT: Pending Prognosis is guarded The impression and plan of care has been dictated by Judy Nichols Nurse Practitioner as directed. Dr. Oral MD I have performed a history and physical examination and medical decision making of this patient, discussed the same with the dictator, and agree with the dictators assessment and plan as written, documented as a scribe. Based on total visit time, I have performed more than 50% of this visit. Objective - Vital Signs Vital signs: Vital Signs Temp 98.4 F 11/25/23 11:25 Pulse 79 11/25/23 11:25 Resp 18 11/25/23 11:25 BP 118/74 11/25/23 11:25 Pulse Ox 98 11/25/23 11:25 FiO2 Intake & Output 11/24/23 11/25/23 11/25/23 18:59 06:59 18:59 Intake Total 600 Balance 600 Intake: Intake, IV Titration 600 Amount Lactated Ringers 1,000 ml 600 @ 75 mls/hr IV .[id number] [facility] Rx#:[id number] Other: Voiding Method Toilet Toilet Toilet # Voids 2 - Labs CBC & Chem 7: 11/25/23 09:31 11/25/23 09:31 Labs: Abnormal Lab Results - Last 24 Hours (Table) 11/25/23 11/25/23 Range/Units 09:31 09:31 RBC 3.75 L (3.80-5.40) m/uL Hgb 10.5 L (11.4-16.0) gm/dL MCHC 30.2 L (31.0-37.0) g/dL Chloride 109 H (98-107) mmol/L Creatinine 0.47 L (0.52-1.04) mg/dL Glucose 109 H (74-99) mg/dL Calcium 8.0 L (8.4-10.2) mg/dL Microbiology - Last 24 Hours (Table) 11/23/23 01:14 Urine Culture - Final Urine,Voided Escherichia coli 11/23/23 10:30 Blood Culture - Preliminary Blood Assessment and Plan Time with Patient: Less than 30
== END 2023-11-25 16:06 | disposition home or self-care (01) ==
LOC: EC 21:48 → 5NMEDONC 11-23 02:59
PROVIDERS: ADMIT Urology; ATTEND Urology
DX: N13.2 Hydronephrosis with renal and ureteral calculous obstruction (principal); N39.0 Urinary tract infection, site not specified; A41.9 Sepsis, unspecified organism; I95.9 Hypotension, unspecified; J45.909 Unspecified asthma, uncomplicated; E87.70 Fluid overload, unspecified; E66.9 Obesity, unspecified; Z68.32 Body mass index [BMI] 32.0-32.9, adult; Z79.899 Other long term (current) drug therapy
CPT/HCPCS: 96376 ×4; 96361 ×3; 96365; 96366 ×3; 96367; 96372 ×2; 96375 ×3; 99285; 36415; 80053; 80048 ×2; 85025 ×3; 81001; 81025; 87040; 87086; 87077; 87186; 71046; 74176; 52332; G0378 ×3; C2625; C1769; J2250; J2270 ×2; J1644 ×2; J1100; J1940; J0690; J2405 ×2; J0696 ×4; J3010; J3490 ×3; J0131; J1885 ×4; J2704

== ENCOUNTER 2023-12-04 11:53 | Day surgery (SDC) | payer OTHER ==
[~2023-12-04 11:53] MED LIST: HYDROmorphone 0.5 MG/0.5 ML SYRINGE IVP PRN; LIDOCAINE 1% (10MG/ML) FOR IV START INTRADERMA PRN; MIDAZOLAM 2 MG/2 ML VIAL IV PRN
[2023-12-04] MEDS: LACTATED RINGERS 1,000 ML IV SCH (12:25)
--- NOTE | 2023-12-04 12:25 | P.HPIHPCON ---
History of Present Illness H&P Date: 12/04/23 Chief Complaint: Left ureteral stone This is a 28-year-old female with a history of an 8 mm left-sided UPJ stone, patient had a UTI with intractable pain, underwent left-sided stent insertion on November 23. Patient presents today with definitive stone management. She has been o n antibiotics since that time. Option of left-sided ureteroscopy with holmium laser was discussed, aware the risk which includes but not limited to bleeding, infection, injury to the ureter Consent for Procedure: I have explained the operation/procedure to the patient, including the risks, benefits, side effects, alternative therapies (including not receiving the proposed treatment or service), the likelihood of the patient achieving his/her goals, and potential recuperation problems for the procedure/sedation/analgesia, as well as any blood products, if indicated. I also explained to the patient the risks, benefits and side effects of the alternatives, as well as the risks related to not receiving the proposed procedure, care, treatment, or services. Past Medical History Past Medical History: Asthma Additional Past Medical History / Comment(s): kidney stones. IBS History of Any Multi-Drug Resistant Organisms: None Reported Past Surgical History: Section, Orthopedic Surgery Additional Past Surgical History / Comment(s): right foot surgery Past Anesthesia/Blood Transfusion Reactions: No Reported Reaction, Motion Sickness Smoking Status: Never smoker - Past Family History Father Family Medical History: Deep Vein Thrombosis (DVT), Pulmonary Embolus Medications and Allergies Home Medications Medication Instructions Recorded Confirmed Type Dextroamphetamine/Amphetamine 5 mg PO BID 11/23/23 12/03/23 History [Adderall] Oxybutynin ER [Ditropan XL] 10 mg PO DAILY #30 tab 11/25/23 12/03/23 Rx Sulfamethox-Tmp 800-160Mg [Bactrim 1 tab PO Q12HR 10 Days #20 tab 11/25/23 12/03/23 Rx DS 800-160 mg] Albuterol Sulfate [Ventolin HFA] 2 puff INHALATION Q6H PRN 12/03/23 12/03/23 History Allergies Allergy/AdvReac Type Severity Reaction Status Date / Time No Known Allergies Allergy Verified 12/04/23 12:21 Surgical - Exam - General no distress, moderate pain - Eyes normal ocular movement, no pale - ENT normal nares, normal mucosa, no hearing loss - Respiratory normal expansion, normal respiratory effort - Abdomen Abdomen: soft, non tender Assessment and Plan Assessment: OR for left-sided ureteroscopy, holmium laser lithotripsy, stone basketing and stent removal
[2023-12-04] MEDS: ONDANSETRON 4 MG/2 ML VIAL IVP ONE (12:57)
[2023-12-04] MEDS: FAMOTIDINE 20 MG/2 ML VIAL IVP ONE (12:57)
[2023-12-04] MEDS: SCOPOLAMINE 1 MG/72 HR PATCH TRANSDERM ONE (12:57)
[2023-12-04] MEDS: DEXAMETHASONE SOD PHOSPHATE 4 MG/ML 1 ML VIAL IV ONE (12:57)
[2023-12-04 13:04] VITALS: TEMP 97
--- NOTE | 2023-12-04 13:31 | XR ---
EXAMINATION TYPE: XR KUB DATE OF EXAM: 12/04/2023 Comparison: CT 11/22/2023 Clinical History: 28-year-old female preoperative assessment, kidney stones Findings: Left-sided ureteral stent is in place. Densities at the right lower quadrant possibly inspissated mat erial within the appendix. Punctate 2 mm nonobstructive right renal calculus. Nonobstructive bowel ga s pattern. Mild stool in the right side of the abdomen. Mild degenerative change right hip. Impression: Punctate 2 mm stone right kidney. Left ureteral stent in place.
[2023-12-04] MEDS ORDERED: fentaNYL (PF) 50 MCG/ML 2 ML AMP ONE (13:55)
[2023-12-04] MEDS ORDERED: LIDOCAINE 1% INJ 10MG/ML (20 ML MDV) ONE (13:55)
[2023-12-04] MEDS ORDERED: MIDAZOLAM 2 MG/2 ML VIAL ONE (13:55)
[2023-12-04] MEDS ORDERED: PROPOFOL 10 MG/ML 20 ML VIAL IV ONE (13:55)
[2023-12-04] MEDS: LACTATED RINGERS 1,000 ML IV ONE ×3 (14:42→17:10)
[2023-12-04] MEDS: KETOROLAC 15 MG/ML 1 ML VIAL IVP ONE (15:09)
--- NOTE | 2023-12-04 15:11 | P.OP ---
Date of Procedure: 12/04/23 Preoperative Diagnosis: Left ureteral stone Postoperative Diagnosis: Same Procedure(s) Performed: Cystoscopy, left ureteroscopy, holmium laser lithotripsy, stone basketing and stent removal Implants: None Anesthesia: GUY Surgeon: Augie Bolivar Estimated Blood Loss (ml): 5 Pathology: other (Left ureteral stone) Condition: stable Disposition: PACU Indications for Procedure: This is a 28-year-old female with a history of an 8 mm left-sided UPJ stone, p atient had a UTI with intractable pain, underwent left-sided stent insertion on November 23. Patient presents today with definitive stone management. She has been on antibiotics since that time. Option of left-sided ureteroscopy with holmium laser was discussed, aware the risk which includes but not limited to bleeding, infection, injury to the ureter Description of Procedure: Patient brought to the operating room, general anesthesia was induced. She was prepped and draped in sterile fashion placed in dorsolithotomy position. Cystoscopy through the 21 [place] sheath was inserted per urethra, cystoscopy was performed which showed no abnormality within the bladder. At this time the stent was grasped and removed intact. Next a semirigid ureteroscope was inserted per urethra and advanced up the left ureteral orifice, I was able to advance the scope all the way up to the UPJ, the stone was seen in the UPJ, given the location of the stone I was unable to laser the stone using the semirigid ureteroscope. At this time a sensor wire was advanced through the scope and into the kidney, pullback ureteroscopy was performed showed no injury to the ureter or any ureteral stones. Next an 1113 [place] access sheath was passed over the wire and into the proximal ureter. Next a flexible ureteroscope was inserted through the access sheath, renoscopy was performed which showed the previous left UPJ stone has migrated into the renal pelvis. Using the holmium laser the stone was fragmented, very limited fragmentation was performed given the struvite appearance of the stone. Using the stone basket the stones were removed, repeat renoscopy showed no sizable fragments or injury to the kidney. Pullback ureteroscopy was performed showed no injury to the ureter or any ureteral stones. The bladder was emptied at the end of the case. Patient tolerated procedure was taken to recovery in stable condition
--- NOTE | 2023-12-04 15:46 | FL ---
EXAMINATION TYPE: FL guidance operating room Intraoperative/procedural fluoroscopic services were pro vided. Total fluoroscopy time is 2.7 seconds with a total of 2 submitted images to PACS. Please see t he operative/procedural note for further details. DAP: 0.3092 Gycm2
[2023-12-04 16:39] VITALS: RESP 16
[2023-12-04 17:28] VITALS: BP 112/75; PULSE 55
== END 2023-12-04 17:18 | disposition home or self-care (01) ==
LOC: OR 11:53
PROVIDERS: ATTEND Urology
DX: N20.1 Calculus of ureter (principal); J45.909 Unspecified asthma, uncomplicated; Z86.73 Personal history of transient ischemic attack (TIA), and cerebral infarction without residual deficits; Z79.51 Long term (current) use of inhaled steroids; Z79.899 Other long term (current) drug therapy
CPT/HCPCS: 82365; 74018; 52353; J1100; J0690; J2405; J3490; J1885; 81025

== ENCOUNTER → 2024-01-31 | Outpatient (CLI) | payer OTHER ==
--- NOTE | 2024-01-31 21:11 | US ---
EXAMINATION TYPE: US kidneys/renal and bladder DATE OF EXAM: 01/31/2024 COMPARISON: CT 2023 CLINICAL INDICATION: Female, 28 years old with history of N20.1 CALCULUS OF URETER; EXAM MEASUREMENTS: Right Kidney: 12.0 x 5.1 x 5.6 cm Left Kidney: 11.6 x 5.1 x 6.3 cm Right Kidney: 0.3cm stone mid pole Left Kidney: no hydronephrosis or masses seen Bladder: wnl Bilateral Jets seen: no Urinary bladder is sonolucent. IMPRESSION: 1. Nonobstructing right mid renal stone
== END | disposition home or self-care (01) ==
LOC: RADUSWWP 15:51
PROVIDERS: ATTEND Urology
DX: N20.2 Calculus of kidney with calculus of ureter (principal)
CPT/HCPCS: 76770

== ENCOUNTER 2024-05-17 12:12 | Inpatient (IN) | payer OTHER ==
--- NOTE | 2024-05-17 12:48 | ED ---
SOB HPI - General Chief Complaint: Shortness of Breath Stated Complaint: Cough Time Seen by Provider: 05/17/24 12:47 Source: patient, RN notes reviewed Mode of arrival: ambulatory Limitations: no limitations - History of Present Illness Initial Comments: 28-year-old female presenting to the ER with a chief complaint of cough and shortness of breath. Patient states she has had a cough for approximately 3 weeks. She states last night she started to experience shortness of breath, chest discomfort and left flank pain. Patient describes chest discomfort as a pressure sensation. No radiation. Patient denies known cardiac history. Patient states she also started to have left flank pain around 6 PM yesterday. She does report a history of kidney stones. Admits to nausea and vomiting yesterday. Denies any hematuria, dysuria, constipation, diarrhea or peripheral edema. Patient took Advil last night for pain relief. - Related Data Home Medications Medication Instructions Recorded Confirmed Albuterol Sulfate [Ventolin HFA] 2 puff INHALATION RT-Q6H PRN 12/03/23 05/17/24 Azithromycin [Zithromax Z Pack] See Taper PO DIRECTED 05/17/24 05/17/24 predniSONE [Deltasone] 20 mg PO BID 05/17/24 05/17/24 Allergies Allergy/AdvReac Type Severity Reaction Status Date / Time bee venom protein (honey bee) Allergy Anaphylaxis Verified 05/17/24 14:20 Review of Systems ROS Statement: Those systems with pertinent positive or pertinent negative responses have been documented in the HPI. ROS Other: All systems not noted in ROS Statement are negative. Past Medical History Past Medical History: Asthma Additional Past Medical History / Comment(s): kidney stones. IBS History of Any Multi-Drug Resistant Organisms: None Reported Past Surgical History: Section, Orthopedic Surgery Additional Past Surgical History / Comment(s): right foot surgery Past Anesthesia/Blood Transfusion Reactions: No Reported Reaction, Motion Sickness Past Psychological History: No Psychological Hx Reported Smoking Status: Never smoker Past Alcohol Use History: None Reported Past Drug Use History: None Reported - Past Family History Father Family Medical History: Deep Vein Thrombosis (DVT), Pulmonary Embolus General Exam Limitations: no limitations General appearance: alert, in no apparent distress Respiratory exam: Present: normal lung sounds bilaterally. Absent: respiratory distress, wheezes, rales, rhonchi, stridor Cardiovascular Exam: Present: normal rhythm, tachycardia, normal heart sounds GI/Abdominal exam: Present: soft, tenderness (LLQ), normal bowel sounds Back exam: Present: CVA tenderness (L) Neurological exam: Present: alert, oriented X3, CN II-XII intact Skin exam: Present: warm, intact, normal color, diaphoretic (mild) Course Vital Signs 05/17/24 05/17/24 05/17/24 12:15 12:34 13:00 Temperature 98.7 F 102.6 F H Pulse Rate 120 H Respiratory 20 24 Rate Blood Pressure 99/62 O2 Sat by Pulse 93 L 97 Oximetry 05/17/24 05/17/24 05/17/24 13:55 13:56 14:28 Temperature 101.1 F H Pulse Rate 106 H Respiratory 20 Rate Blood Pressure 107/52 O2 Sat by Pulse 96 Oximetry - Reevaluation(s) Reevaluation #1: 05/17/24 13:10 Patient met sepsis criteria. 05/17/24 14:00 Infection identified: Pneumonia. Rocephin and azithromycin ordered. 05/17/24 14:33 [facility] Medical Decision Making - Medical Decision Making Was pt. sent in by a medical professional or institution (, PA, PLANNING COORDINATOR, urgent care, hospital, or long term...) When possible be specific @ -No Did you speak to anyone other than the patient for history (EMS, parent, family, police, friend...)? What history was obtained from this source @ -No Did you review nursing and triage notes (agree or disagree)? Why? @ -I reviewed and agree with nursing and triage notes Were old charts reviewed (outside hosp., previous admission, EMS record, old EKG, old radiological studies, urgent care reports/EKG's, long term records)? Report findings @ -No old charts were reviewed Differential Diagnosis (chest pain, altered mental status, abdominal pain women, abdominal pain men, vaginal bleeding, weakness, fever, dyspnea, syncope, headache, dizziness, GI bleed, back pain, seizure, CVA, palpatations, mental health, musculoskeletal)? @ -Differential Dyspnea:Coronary syndrome, arrhythmia, tamponade, asthma, COPD, pulmonary embolism, pneumonia, pneumothorax, pulmonary effusion, anaphylaxis, diabetic ketoacidosis, flailed chest, pulmonary contusion, diaphragmatic rup ture, anemia, neuromuscular, this is not meant to be an all-inclusive list. EKG interpreted by me (3pts min.). @ -As above X-rays interpreted by me (1pt min.). @ -CXR interpreted me remarkable for right lower lobe consolidation concerning of pneumonia. CT interpreted by me (1pt min.). @ -None done U/S interpreted by me (1pt. min.). @ -None done What testing was considered but not performed or refused? (CT, X-rays, U/S, labs)? Why? @ -None What meds were considered but not given or refused? Why? @ -None Did you discuss the management of the patient with other professionals (professionals i.e. , PA, PLANNING COORDINATOR, lab, RT, psych nurse, administrator social welfare, nurse extern, teacher, front desk officer, pillowcase cleaner)? Give summary @ -Yes, case discussed with [facility], Dr. Salter, for admission. Was smoking cessation discussed for >3mins.? @ -No Was critical care preformed (if so, how long)? @ -Yes, 30 minutes Were there social determinants of health that impacted care today? How? (Homelessness, low income, unemployed, alcoholism, drug addiction, transportation, low edu. Level, literacy, decrease access to med. care, [facility], rehab)? @ -No Was there de-escalation of care discussed even if they declined (Discuss DNR or withdrawal of care, Hospice)? DNR status @ -No What co-morbidities impacted this encounter? (DM, HTN, Smoking, COPD, CAD, Cancer, CVA, ARF, Chemo, Hep., AIDS, mental health diagnosis, sleep apnea, morbid obesity)? @ -None Was patient admitted / discharged? Hospital course, mention meds given and route, prescriptions, significant lab abnormalities, going to OR and other pertinent info. @ -Admitted. 28-year-old female presenting to the ER with a chief complaint of cough and shortness of breath x 3 weeks. History and physical exam completed. Patient febrile on arrival at 102.6, heart rate 120, respiratory 20, blood pressure 99/62, oxygen saturation 93% on room air. Patient started on 2 L nasal cannula oxygen with oxygen saturation improvement to 97%. Patient is ill- appearing with no signs of acute distress. Laboratory studies obtained remarkable for WBC 17.3 with a left shift. Lactic 1.4. CMP showing nonspecific signs of dehydration. Troponin undetectable. EKG showing sinus tachycardia no evidence of infarct. Urine analysis with trace leukocyte esterases and rare bacteria. hCG negative. Viral swabs negative. Chest x-ray concerning of pneumonia. Patient received p.o. Tylenol and ibuprofen for fever control in the ER. Patient met sepsis criteria at 1310. Infection was identified and antibiotics, Rocephin and azithromycin, ordered at 1400. Blood cultures pending. Patient given 2 L IV bolus and started on maintenance fluid at 130 cc/h. Admission considered and discussed with [facility], , for IV antibiotics and further treatment of sepsis pneumonia. ID on consult. Upon reevaluation, patient resting comfortably in exam room. No signs of acute distress. Patient agreeable for admission. Patient admitted in stable condition. Case discussed with the attending of Dr. Huerta. Undiagnosed new problem with uncertain prognosis? @ -No Drug Therapy requiring intensive monitoring for toxicity (Heparin, Nitro, Insulin, Cardizem)? @ -No Were any procedures done? @ -No Diagnosis/symptom? @ -Sepsis/pneumonia Acute, or Chronic, or Acute on Chronic? @ -Acute Uncomplicated (without systemic symptoms) or Complicated (systemic symptoms)? @ -Complicated Side effects of treatment? @ -No Exacerbation, Progression, or Severe Exacerbation? @ -No Poses a threat to life or bodily function? How? (Chest pain, [place], [place], pneumonia, PE, COPD, DKA, ARF, appy, cholecystitis, CVA, Diverticulitis, Homicidal, Suicidal, threat to staff... and all critical care pts) @ -Yes, sepsis can lead to end organ dysfunction. - Lab Data Result diagrams: 05/17/24 13:00 05/17/24 13:00 Lab Results 05/17/24 05/17/24 05/17/24 Range/Units 13:00 13:00 13:00 WBC 17.3 H (3.8-10.6) k/uL RBC 4.65 (3.80-5.40) m/uL Hgb 13.1 (11.4-16.0) gm/dL Hct 41.8 (34.0-46.0) % MCV 90.0 (80.0-100.0) fL MCH 28.2 (25.0-35.0) pg MCHC 31.4 (31.0-37.0) g/dL RDW 12.7 (11.5-15.5) % Plt Count 191 (150-450) k/uL MPV 9.1 Neutrophils % 94 % Lymphocytes % 3 % Monocytes % 2 % Eosinophils % 1 % Basophils % 0 % Neutrophils # 16.2 H (1.3-7.7) k/uL Lymphocytes # 0.5 L (1.0-4.8) k/uL Monocytes # 0.3 (0-1.0) k/uL Eosinophils # 0.2 (0-0.7) k/uL Basophils # 0.0 (0-0.2) k/uL PT (10.0-12.5) sec INR (<1.2) APTT (22.0-30.0) sec Sodium (137-145) mmol/L Potassium (3.5-5.1) mmol/L Chloride (98-107) mmol/L Carbon Dioxide (22-30) mmol/L Anion Gap mmol/L BUN (7-17) mg/dL Creatinine (0.52-1.04) mg/dL Est GFR (CKD-EPI)AfAm (>60 ml/min/1.73 sqM) Est GFR (CKD-EPI)NonAf (>60 ml/min/1.73 sqM) Glucose (74-99) mg/dL Plasma Lactic Acid Carmelo (0.7-2.0) mmol/L Calcium (8.4-10.2) mg/dL Total Bilirubin (0.2-1.3) mg/dL AST (14-36) U/L ALT (4-34) U/L Alkaline Phosphatase (38-126) U/L Troponin I (0.000-0.034) ng/mL Total Protein (6.3-8.2) g/dL Albumin (3.5-5.0) g/dL Urine Color Yellow Urine Appearance Clear (Clear) Urine pH 6.0 (5.0-8.0) Ur Specific Campbell 1.017 (1.001-1.035) Urine Protein 1+ H (Negative) Urine Glucose (UA) Negative (Negative) Urine Ketones Negative (Negative) Urine Blood Negative (Negative) Urine Nitrite Negative (Negative) Urine Bilirubin Negative (Negative) Urine Urobilinogen <2.0 (<2.0) mg/dL Ur Leukocyte Esterase Trace H (Negative) Urine RBC 1 (0-5) /hpf Urine WBC 5 (0-5) /hpf Ur Squamous Epith Cells 4 (0-4) /hpf Urine Bacteria Rare H (None) /hpf Urine Mucus Rare H (None) /hpf Urine HCG, Qual Not Detected (Not Detectd) Influenza Type A (PCR) (Not Detectd) Influenza Type B (PCR) (Not Detectd) RSV (PCR) (Not Detectd) SARS-CoV-2 (PCR) (Not Detectd) 05/17/24 05/17/24 05/17/24 Range/Units 13:00 13:00 13:00 WBC (3.8-10.6) k/uL RBC (3.80-5.40) m/uL Hgb (11.4-16.0) gm/dL Hct (34.0-46.0) % MCV (80.0-100.0) fL MCH (25.0-35.0) pg MCHC (31.0-37.0) g/dL RDW (11.5-15.5) % Plt Count (150-450) k/uL MPV Neutrophils % % Lymphocytes % % Monocytes % % Eosinophils % % Basophils % % Neutrophils # (1.3-7.7) k/uL Lymphocytes # (1.0-4.8) k/uL Monocytes # (0-1.0) k/uL Eosinophils # (0-0.7) k/uL Basophils # (0-0.2) k/uL PT (10.0-12.5) sec INR (<1.2) APTT (22.0-30.0) sec Sodium 136 L (137-145) mmol/L Potassium 3.5 (3.5-5.1) mmol/L Chloride 105 (98-107) mmol/L Carbon Dioxide 24 (22-30) mmol/L Anion Gap 7 mmol/L BUN 15 (7-17) mg/dL Creatinine 0.63 (0.52-1.04) mg/dL Est GFR (CKD-EPI)AfAm >90 (>60 ml/min/1.73 sqM) Est GFR (CKD-EPI)NonAf >90 (>60 ml/min/1.73 sqM) Glucose 110 H (74-99) mg/dL Plasma Lactic Acid Carmelo 1.4 (0.7-2.0) mmol/L Calcium 8.4 (8.4-10.2) mg/dL Total Bilirubin 1.5 H (0.2-1.3) mg/dL AST 18 (14-36) U/L ALT 14 (4-34) U/L Alkaline Phosphatase 56 (38-126) U/L Troponin I (0.000-0.034) ng/mL Total Protein 6.3 (6.3-8.2) g/dL Albumin 3.7 (3.5-5.0) g/dL Urine Color Urine Appearance (Clear) Urine pH (5.0-8.0) Ur Specific Campbell (1.001-1.035) Urine Protein (Negative) Urine Glucose (UA) (Negative) Urine Ketones (Negative) Urine Blood (Negative) Urine Nitrite (Negative) Urine Bilirubin (Negative) Urine Urobilinogen (<2.0) mg/dL Ur Leukocyte Esterase (Negative) Urine RBC (0-5) /hpf Urine WBC (0-5) /hpf Ur Squamous Epith Cells (0-4) /hpf Urine Bacteria (None) /hpf Urine Mucus (None) /hpf Urine HCG, Qual (Not Detectd) Influenza Type A (PCR) Not Detected (Not Detectd) Influenza Type B (PCR) Not Detected (Not Detectd) RSV (PCR) Not Detected (Not Detectd) SARS-CoV-2 (PCR) Not Detected (Not Detectd) 05/17/24 05/17/24 Range/Units 13:00 13:00 WBC (3.8-10.6) k/uL RBC (3.80-5.40) m/uL Hgb (11.4-16.0) gm/dL Hct (34.0-46.0) % MCV (80.0-100.0) fL MCH (25.0-35.0) pg MCHC (31.0-37.0) g/dL RDW (11.5-15.5) % Plt Count (150-450) k/uL MPV Neutrophils % % Lymphocytes % % Monocytes % % Eosinophils % % Basophils % % Neutrophils # (1.3-7.7) k/uL Lymphocytes # (1.0-4.8) k/uL Monocytes # (0-1.0) k/uL Eosinophils # (0-0.7) k/uL Basophils # (0-0.2) k/uL PT 11.8 (10.0-12.5) sec INR 1.1 (<1.2) APTT 25.7 (22.0-30.0) sec Sodium (137-145) mmol/L Potassium (3.5-5.1) mmol/L Chloride (98-107) mmol/L Carbon Dioxide (22-30) mmol/L Anion Gap mmol/L BUN (7-17) mg/dL Creatinine (0.52-1.04) mg/dL Est GFR (CKD-EPI)AfAm (>60 ml/min/1.73 sqM) Est GFR (CKD-EPI)NonAf (>60 ml/min/1.73 sqM) Glucose (74-99) mg/dL Plasma Lactic Acid Carmelo (0.7-2.0) mmol/L Calcium (8.4-10.2) mg/dL Total Bilirubin (0.2-1.3) mg/dL AST (14-36) U/L ALT (4-34) U/L Alkaline Phosphatase (38-126) U/L Troponin I <0.012 (0.000-0.034) ng/mL Total Protein (6.3-8.2) g/dL Albumin (3.5-5.0) g/dL Urine Color Urine Appearance (Clear) Urine pH (5.0-8.0) Ur Specific Campbell (1.001-1.035) Urine Protein (Negative) Urine Glucose (UA) (Negative) Urine Ketones (Negative) Urine Blood (Negative) Urine Nitrite (Negative) Urine Bilirubin (Negative) Urine Urobilinogen (<2.0) mg/dL Ur Leukocyte Esterase (Negative) Urine RBC (0-5) /hpf Urine WBC (0-5) /hpf Ur Squamous Epith Cells (0-4) /hpf Urine Bacteria (None) /hpf Urine Mucus (None) /hpf Urine HCG, Qual (Not Detectd) Influenza Type A (PCR) (Not Detectd) Influenza Type B (PCR) (Not Detectd) RSV (PCR) (Not Detectd) SARS-CoV-2 (PCR) (Not Detectd) - EKG Data -: EKG Interpreted by Me EKG Comments: EKG taken at 12: 41 showing a sinus tachycardia. No acute ST segment or T wave abnormalities. Ventricular rate 109, DC interval 123, QRS duration 82, QT/QTc 293/357. - Radiology Data Radiology results: report reviewed, image reviewed Disposition Clinical Impression: Pneumonia, Sepsis Disposition: ADMITTED IP TO THIS HOSP Condition: Stable Referrals: Jose Chan DO [Primary Care Provider] - 1-2 days Time of Disposition: 14:05
[2024-05-17] MEDS: IBUPROFEN 600 MG TAB PO STA (12:58)
[2024-05-17] MEDS: SODIUM CHLORIDE 0.9% 1,000 ML IV STA ×3 (12:59→14:34)
[2024-05-17] MEDS: ACETAMINOPHEN TAB 500 MG TAB PO STA (12:59)
[2024-05-17 13:08] LABS: Basophils % (A) 0 %; Eosinophils # (A) 0.2 k/uL (0-0.7); Eosinophils % (A) 1 %; HCT 41.8 % (34.0-46.0); HGB 13.1 gm/dL (11.4-16.0); Lymphocytes # (A) 0.5 k/uL (1.0-4.8); Lymphocytes % (A) 3 %; MCH 28.2 pg (25.0-35.0); MCHC 31.4 g/dL (31.0-37.0); Mean Platelet Volume 9.1; Monocytes # (A) 0.3 k/uL (0-1.0); Monocytes % (A) 2 %; Neutrophils # (A) 16.2 k/uL (1.3-7.7); Neutrophils % (A) 94 %; Platelet Count 191 k/uL (150-450); RBC 4.65 m/uL (3.80-5.40); RDW 12.7 % (11.5-15.5); WBC 17.3 k/uL (3.8-10.6)
[2024-05-17 13:16] LABS: Appearance,Urine Clear (Clear); Bacteria,Urine Rare /hpf; Bilirubin,Urine Negative (Negative); Blood,Urine Negative (Negative); Color,Urine Yellow; Glucose,Urine (UA) Negative (Negative); Ketones,Urine Negative (Negative); Leukocyte Esterase,Urine Trace (Negative); Mucus,Urine Rare /hpf; Nitrite,Urine Negative (Negative); Protein,Urine 1+ (Negative); RBC,Urine 1 /hpf (0-5); Specific Gravity,Urine 1.017 (1.001-1.035); Squamous Epithelial Cell,Urine 4 /hpf (0-4); Urobilinogen,Urine <2.0 mg/dL (<2.0); WBC,Urine 5 /hpf (0-5)
[2024-05-17 13:21] LABS: ALT 14 U/L (4-34); AST 18 U/L (14-36); African American GFR (CKD) >90 (>60 ml/min/1.73 sqM); Albumin 3.7 g/dL (3.5-5.0); Alkaline Phosphatase 56 U/L (38-126); Anion Gap 7 mmol/L; Blood Urea Nitrogen 15 mg/dL (7-17); Calcium 8.4 mg/dL (8.4-10.2); Carbon Dioxide 24 mmol/L (22-30); Chloride 105 mmol/L (98-107); Glucose 110 mg/dL (74-99); Non-African American GFR(CKD) >90 (>60 ml/min/1.73 sqM); Potassium 3.5 mmol/L (3.5-5.1); Sodium 136 mmol/L (137-145); Total Bilirubin 1.5 mg/dL (0.2-1.3); Total Protein 6.3 g/dL (6.3-8.2)
[2024-05-17 13:24] LABS: INR 1.1 (<1.2); Partial Thromboplastin Time 25.7 sec (22.0-30.0); Prothrombin Time 11.8 sec (10.0-12.5)
--- NOTE | 2024-05-17 13:51 | XR ---
EXAMINATION TYPE: XR chest 2V DATE OF EXAM: 05/17/2024 1:28 PM CLINICAL INDICATION: Female, 28 years old with history of cough fever; [facility] COMPARISON: Chest radiographs from 11/25/2023e TECHNIQUE: XR chest 2V Frontal and lateral views of the chest. FINDINGS: Lungs/Pleura: Airspace opacities projecting over the spine on lateral view. There is no evidence of p leural effusion , or pneumothorax. Pulmonary vascularity: Unremarkable. Heart/mediastinum: Cardiomediastinal silhouette is unremarkable. Musculoskeletal: No acute osseous pathology. IMPRESSION: Airspace opacities projecting over the lung correlate for pneumonia. [facility], , 05/17/2024 1:49 PM
[2024-05-17] MEDS ORDERED: NALOXONE 0.4 MG/ML 1 ML VIAL IV PRN (14:29)
[2024-05-17] MEDS ORDERED: ONDANSETRON 4 MG/2 ML VIAL IVP PRN (14:29)
[2024-05-17] MEDS: AZITHROMYCIN 500 MG TAB PO STA (14:30)
[2024-05-17] MEDS: cefTRIAXone IN SWFI 1,000 MG/10 ML SYRINGE IVP STA (14:30)
[2024-05-17] MEDS ORDERED: ALBUTEROL NEBULIZED 2.5 MG/3 ML INHALATION PRN (17:43)
--- NOTE | 2024-05-17 17:49 | P.HPIM ---
History of Present Illness This is a pleasant 28 years old female who presents with worsening dyspnea over 3 days. Associated with cough and white to green phlegm for 3 weeks, this worsened by chest pain about 4/10 for the last 4 days felt like heaviness and comes mainly with coughing She vomited twice today, other than that she denies any abdominal pain or diarrhea, no urinary complaint. She feels dizzy but no headache weakness or numbness. She is generally weak and looks fatigued with malaise She denies smoking alcohol or illicit drugs She had a fever on admission 102.6. She is mildly tachycardic and tachypneic. Labs showing leukocytosis, rest of labs were unremarkable including BMP, LFT, INR, troponin, UA looks concentrated Influenza A and type B, RSV, SARS (coronavirus) are undetected Blood culture is requested and is pending EKG showing sinus tachycardia at 109 Chest x-ray showing airspace opacity on both sides, more on the right basal s dmitriy. Review of Systems Review of systems CONSTITUTIONAL: No fever, no malaise, no fatigue. HEENT: No recent visual problems or hearing problems. Denied any sore throat. CARDIOVASCULAR: No orthopnea, PND, no palpitations, no syncope. PULMONARY: No chest wall tenderness, no hemoptysis. GASTROINTESTINAL: No diarrhea, no nausea, no vomiting, no abdominal pain. Normo active bowel sounds. NEUROLOGICAL: No headaches, no weakness, no numbness. HEMATOLOGICAL: Denies any bleeding or petechiae. GENITOURINARY: Denies any burning micturition, frequency, or urgency. MUSCULOSKELETAL/RHEUMATOLOGICAL: Denies any joint pain, swelling, or any muscle pain. ENDOCRINE: Denies any polyuria or polydipsia. Past Medical History Past Medical History: Asthma Additional Past Medical History / Comment(s): kidney stones. IBS History of Any Multi-Drug Resistant Organisms: None Reported Past Surgical History: Section, Orthopedic Surgery Additional Past Surgical History / Comment(s): right foot surgery Past Anesthesia/Blood Transfusion Reactions: No Reported Reaction, Motion Sickness Past Psychological History: No Psychological Hx Reported Smoking Status: Never smoker Past Alcohol Use History: None Reported Past Drug Use History: None Reported - Past Family History Father Family Medical History: Deep Vein Thrombosis (DVT), Pulmonary Embolus Medications and Allergies Home Medications Medication Instructions Recorded Confirmed Type Albuterol Sulfate [Ventolin HFA] 2 puff INHALATION RT-Q6H PRN 12/03/23 05/17/24 History Azithromycin [Zithromax Z Pack] See Taper PO DIRECTED 05/17/24 05/17/24 History predniSONE [Deltasone] 20 mg PO BID 05/17/24 05/17/24 History Allergies Allergy/AdvReac Type Severity Reaction Status Date / Time bee venom protein (honey bee) Allergy Anaphylaxis Verified 05/17/24 14:20 Physical Exam Vitals: Vital Signs Temp Pulse Resp BP Pulse Ox 05/17/24 15:54 100 F H 105 H 20 97 05/17/24 14:28 101.1 F H 05/17/24 13:56 107/52 05/17/24 13:55 106 H 20 96 05/17/24 13:00 24 97 05/17/24 12:34 102.6 F H 05/17/24 12:15 98.7 F 120 H 20 99/62 93 L Intake and Output 05/17/24 05/17/24 05/17/24 06:59 14:59 22:59 Other: Weight 87.543 kg GENERAL: The patient is alert and oriented x3, not in any acute distress. Well developed, well nourished. HEENT: Pupils are round and equally reacting to light. EOMI. No scleral icterus. No conjunctival pallor. Normocephalic, atraumatic. No pharyngeal erythema. No thyromegaly. CARDIOVASCULAR: S1 and S2 present. No murmurs, rubs, or gallops. -PULMONARY: Chest is clear to auscultation, no wheezing , bilateral basal crackles more on the right side ABDOMEN: Soft, nontender, nondistended, normoactive bowel sounds. No palpable organomegaly. MUSCULOSKELETAL: No joint swelling or deformity. EXTREMITIES: No cyanosis, clubbing, or pedal edema. NEUROLOGICAL: Gross neurological examination did not reveal any focal deficits. SKIN: No rashes. no petechiae. Results CBC & Chem 7: 05/17/24 13:00 05/17/24 13:00 Labs: Abnormal Lab Results - Last 24 Hours (Table) 05/17/24 05/17/24 05/17/24 Range/Units 13:00 13:00 13:00 WBC 17.3 H (3.8-10.6) k/uL Neutrophils # 16.2 H (1.3-7.7) k/uL Lymphocytes # 0.5 L (1.0-4.8) k/uL Sodium 136 L (137-145) mmol/L Glucose 110 H (74-99) mg/dL Total Bilirubin 1.5 H (0.2-1.3) mg/dL Urine Protein 1+ H (Negative) Ur Leukocyte Esterase Trace H (Negative) Urine Bacteria Rare H (None) /hpf Urine Mucus Rare H (None) /hpf Assessment and Plan Assessment: Community-acquired pneumonia, mainly right basal more than left Sepsis secondary to above with fever and leukocytosis Plan: Continue with antibiotic, ceftriaxone and Zithromax Follow-up sputum culture and blood culture Infectious disease consult Bronchodilator Continue with oxygen therapy as needed Labs and medication were reviewed.. Continue with symptomatic treatment. onitor labs and vitals. DVT and GI prophylaxis. Further recommendations as per clinical course of the patient DVT prophylaxis: Subcutaneous heparin GI Prophylaxis: Pepcid Prognosis is guarded
[2024-05-17] MEDS: SODIUM CHLORIDE 0.9% 1,000 ML IV SCH (18:43)
--- NOTE | 2024-05-17 22:39 | P.CONS ---
History of Present Illness - Reason for Consult Consult date: 05/17/24 Sepsis Requesting physician: Niyah Qureshi - Chief Complaint Left-sided chest pain shortness of breath and cough x days - History of Present Illness Patient is a 28-year-old female with a past medical history nephric and for asthma kidney stone IBS no history of smoking presenting to the hospital for evaluation of increasing shortness of breath and cough patient mentions symptom has been going on for almost 3 weeks however last night patient started having increasing shortness of breath and started having pain to the left lower chest area describing it to be sharp moderate intensity with more pain taking a deep breath patient did have a cough moderate intensity and is bringing up purulent sputum with some hemoptysis patient did not require high-grade fever at home however the patient did have a temperature of 102.6 F on presentation to the hospital patient was tachycardic but not hypotensive mildly hypoxic currently on 2 L current oxygen patient did have a white count of 17.3 with a left shift creatinine 0.63 liver enzymes are normal urine has been negative influenza RSV COVID testing was negative patient did have a chest x-ray airspace opacity correlate for pneumonia patient was started on Rocephin infectious disease was consulted for further management of antibiotic therapy Review of Systems Positive point and negatives has been mentioned in the HPI, complete review of systems was performed and all other systems are negative Past Medical History Past Medical History: Asthma Additional Past Medical History / Comment(s): kidney stones. IBS History of Any Multi-Drug Resistant Organisms: None Reported Past Surgical History: Section, Orthopedic Surgery Additional Past Surgical History / Comment(s): right foot surgery Past Anesthesia/Blood Transfusion Reactions: No Reported Reaction, Motion Sickness Past Psychological History: No Psychological Hx Reported Smoking Status: Never smoker Past Alcohol Use History: None Reported Past Drug Use History: None Reported - Past Family History Father Family Medical History: Deep Vein Thrombosis (DVT), Pulmonary Embolus Medications and Allergies Home Medications Medication Instructions Recorded Confirmed Type Albuterol Sulfate [Ventolin HFA] 2 puff INHALATION RT-Q6H PRN 12/03/23 05/17/24 History Azithromycin [Zithromax Z Pack] See Taper PO DIRECTED 05/17/24 05/17/24 History predniSONE [Deltasone] 20 mg PO BID 05/17/24 05/17/24 History Allergies Allergy/AdvReac Type Severity Reaction Status Date / Time bee venom protein (honey bee) Allergy Anaphylaxis Verified 05/17/24 14:20 Physical Exam Vitals: Vital Signs Temp Pulse Resp BP Pulse Ox 05/17/24 14:28 101.1 F H 05/17/24 13:56 107/52 05/17/24 13:55 106 H 20 96 05/17/24 13:00 24 97 05/17/24 12:34 102.6 F H 05/17/24 12:15 98.7 F 120 H 20 99/62 93 L Intake and Output 05/16/24 05/17/24 05/17/24 22:59 06:59 14:59 Other: Weight 87.543 kg GENERAL DESCRIPTION: Middle-aged female lying in bed, no distress. No tachypnea or accessory muscle of respiration use. HEENT: Shows Pallor , no scleral icterus. Oral mucous membrane is dry. No pharyn geal erythema or thrush NECK: Trachea central, no thyromegaly. LUNGS: Unlabored breathing. Decreased breath sound the left base HEART: S1, S2, regular rate and rhythm. No loud murmur ABDOMEN: Soft, no tenderness , guarding or rigidity, no organomegaly EXTREMITIES: No edema of feet. SKIN: No rash, no masses palpable. NEUROLOGICAL: The patient is awake, alert, oriented x3, mood and affect normal. Results CBC & Chem 7: 05/17/24 13:00 05/17/24 13:00 Labs: Abnormal Lab Results - Last 24 Hours (Table) 05/17/24 05/17/24 05/17/24 Range/Units 13:00 13:00 13:00 WBC 17.3 H (3.8-10.6) k/uL Neutrophils # 16.2 H (1.3-7.7) k/uL Lymphocytes # 0.5 L (1.0-4.8) k/uL Sodium 136 L (137-145) mmol/L Glucose 110 H (74-99) mg/dL Total Bilirubin 1.5 H (0.2-1.3) mg/dL Urine Protein 1+ H (Negative) Ur Leukocyte Esterase Trace H (Negative) Urine Bacteria Rare H (None) /hpf Urine Mucus Rare H (None) /hpf Assessment and Plan (1) Pneumonia Current Visit: Yes Status: Acute Code(s): J18.9 - PNEUMONIA, UNSPECIFIED ORGANISM SNOMED Code(s): 911920805 (2) Sepsis Current Visit: Yes Status: Acute Code(s): A41.9 - SEPSIS, UNSPECIFIED ORGANISM SNOMED Code(s): 44857616 Plan: 1patient presented hospital with sepsis in this patient who did have fever tachycardia elevated white count source is left-sided pneumonia likely community-acquired failing outpatient oral Zithromax therapy 2-we will try to obtain a sputum for Gram stain and culture check a urine for urine antigen and mycoplasma antibodies IgM 3-patient also will be adjusted to 2 g daily and continue the Zithromax Mother at the bedside question concern answered We will follow on clinical condition and cultures to further adjust medication if needed Thank you for this consultation we will follow the patient along with you Dictation was produced using [employer] dictation software. please excuse any grammatical, word or spelling errors. Time with Patient: Greater than 30
[2024-05-18] MEDS: AZITHROMYCIN 500 MG TAB PO SCH (07:33)
[2024-05-18] MEDS ORDERED: cefTRIAXone IN SWFI 1,000 MG/10 ML SYRINGE IVP SCH (09:00)
[2024-05-18 09:31] LABS: Blood Urea Nitrogen 8.8 mg/dL (9.0-27.0); Calcium 7.5 mg/dL (8.7-10.3); Carbon Dioxide 22.6 mmol/L (21.6-31.8); Chloride 109 mmol/L (96-109); Glucose 85 mg/dL (70-110); Potassium 3.3 mmol/L (3.5-5.5); Sodium 140 mmol/L (135-145)
[2024-05-18 09:42] LABS: Basophils # (A) 0.06 X 10*3/uL (0.00-0.10); Basophils % (A) 0.3 %; Eosinophils # (A) 0.19 X 10*3/uL (0.04-0.35); HCT 31.6 % (37.2-46.3); Lymphocytes # (A) 1.88 X 10*3/uL (0.90-5.00); Lymphocytes % (A) 10.3 %; MCH 28.6 pg (27.0-32.0); MCHC 31.6 g/dL (32.0-37.0); MCV 90.3 FL (80.0-97.0); Mean Platelet Volume 12.7 FL (9.5-12.2); Monocytes # (A) 0.72 X 10*3/uL (0.20-1.00); Monocytes % (A) 3.9 %; NRBC Per 100 WBC 0 X 10*3/uL (0.00-0.01); Neutrophils # (A) 15.28 X 10*3/uL (1.80-7.70); Neutrophils % (A) 83.8 %; Platelet Count 163 X 10*3/uL (140-440); RDW 13.2 % (11.5-14.5); WBC 18.25 X 10*3/uL (4.50-10.00)
[2024-05-18] MEDS ORDERED: Potassium Replacement Protocol 1 EACH MISC MISCELLANE PRN (10:04)
--- NOTE | 2024-05-18 10:24 | P.PN ---
Subjective This is a pleasant 28 years old female who presents with worsening dyspnea over 3 days. Associated with cough and white to green phlegm for 3 weeks, this worsened by chest pain about 4/10 for the last 4 days felt like heaviness and comes mainly with coughing She vomited twice today, other than that she denies any abdominal pain or diarrhea, no urinary complaint. She feels dizzy but no headache weakness or numbness. She is generally weak and looks fatigued with malaise She denies smoking alcohol or illicit drugs She had a fever on admission 102.6. She is mildly tachycardic and tachypneic. Labs showing leukocytosis, rest of labs were unremarkable including BMP, LFT, INR, troponin, UA looks concentrated Influenza A and type B, RSV, SARS (coronavirus) are undetected Blood culture is requested and is pending EKG showing sinus tachycardia at 109 Chest x-ray showing airspace opacity on both sides, more on the right basal side. 05/18 Patient still severely weak with malaise. She is coughing a lot. She has mild to moderate tachypnea while at rest. She reports slight improvement in her breathing difficulty. She is complaining from mild headache She is concerned about her fingers getting swollen therefore we will give a small dose of IV Lasix 20 mg. I explained to her the importance of IV fluid and she agrees to keep normal saline, currently running at 130 mL/h She has no more fever Leukocytosis mildly worse at 18.2. Hemoglobin dropped from 13 down to 10 with some elements of hemodilution Blood culture and sputum culture are still pending and currently covered with ceftriaxone and Zithromax Given her severe respiratory symptoms we are going to consult pulmonary service as well Review of systems CONSTITUTIONAL: No fever, no malaise, no fatigue. HEENT: No recent visual problems or hearing problems. Denied any sore throat. CARDIOVASCULAR: No orthopnea, PND, no palpitations, no syncope. HEMATOLOGICAL: Denies any bleeding or petechiae. GENITOURINARY: Denies any burning micturition, frequency, or urgency. MUSCULOSKELETAL/RHEUMATOLOGICAL: Denies any joint pain, swelling, or any muscle pain. ENDOCRINE: Denies any polyuria or polydipsia. Active Medications Generic Name Dose Route Start Last Admin Trade Name Freq PRN Reason Stop Dose Admin Acetaminophen 650 mg 05/17/24 14:29 Acetaminophen Tab 325 Mg Tab PO Q6HR PRN Mild Pain or Fever > 100.5 Albuterol Sulfate 2.5 mg 05/17/24 17:43 Albuterol Nebulized 2.5 Mg/3 Ml INHALATION RT-Q6H PRN Shortness Of Breath Azithromycin 500 mg 05/18/24 09:00 05/18/24 07:33 Azithromycin 500 Mg Tab PO 05/21/24 08:59 500 mg DAILY NELSON Administration Protocol Guaifenesin/Dextromethorphan 10 ml 05/18/24 09:41 Guaifenesin-Dm 100-10mg/5ml 10 Ml Cup PO Q6HR PRN Cough Ceftriaxone Sodium 2 gm/ 50 mls @ 100 mls/hr 05/18/24 16:00 Sodium Chloride IVPB Q24H NELSON Sodium Chloride 1,000 mls @ 130 mls/hr 05/17/24 17:45 05/18/24 07:33 Saline 0.9% IV 130 mls/hr .[id number] NELSON Administration Ibuprofen 600 mg 05/17/24 14:29 Ibuprofen 400 Mg Tab PO Q6HR PRN Mild Pain or Fever > 100.5 Miscellaneous Information 1 each 05/18/24 10:04 Potassium Replacement Protocol 1 Each Misc MISCELLANE DAILY PRN Per Protocol Protocol Naloxone HCl 0.2 mg 05/17/24 14:29 Naloxone 0.4 Mg/Ml 1 Ml Vial IV Q2M PRN Opioid Reversal Ondansetron HCl 4 mg 05/17/24 14:29 Ondansetron 4 Mg/2 Ml Vial IVP Q8HR PRN Nausea And Vomiting Potassium Chloride 20 meq 05/18/24 11:00 Potassium Chloride Er 20 Meq Tab.Er PO 05/18/24 12:01 Q1HR [facility] Protocol Objective - Vital Signs Vital signs: Vital Signs Temp 98.8 F 05/18/24 06:04 Pulse 93 05/18/24 07:43 Resp 18 05/18/24 07:43 BP 108/58 05/18/24 07:43 Pulse Ox 97 05/18/24 06:04 FiO2 Intake & Output 05/17/24 05/18/24 05/18/24 18:59 06:59 18:59 Weight 87.543 kg - Exam GENERAL: The patient is alert and oriented x3, not in any acute distress. Well developed, well nourished. HEENT: Pupils are round and equally reacting to light. EOMI. No scleral icterus. No conjunctival pallor. Normocephalic, atraumatic. No pharyngeal erythema. No thyromegaly. CARDIOVASCULAR: S1 and S2 present. No murmurs, rubs, or gallops. -PULMONARY: Chest is clear to auscultation, no wheezing , no crackles. Decreased breath sounds in both lower lungs more on the right side ABDOMEN: Soft, nontender, nondistended, normoactive bowel sounds. No palpable organomegaly. MUSCULOSKELETAL: No joint swelling or deformity. EXTREMITIES: No cyanosis, clubbing, or pedal edema. NEUROLOGICAL: Gross neurological examination did not reveal any focal deficits. SKIN: No rashes. no petechiae. - Labs CBC & Chem 7: 05/18/24 06:18 05/18/24 06:18 Labs: Abnormal Lab Results - Last 24 Hours (Table) 05/17/24 05/17/24 05/17/24 Range/Units 13:00 13:00 13:00 WBC 17.3 H (3.8-10.6) k/uL RBC (4.10-5.20) X 10*6/uL Hgb (12.0-15.0) g/dL Hct (37.2-46.3) % MCHC (32.0-37.0) g/dL MPV (9.5-12.2) FL Immature Gran # (0.00-0.04) X 10*3/uL Neutrophils # 16.2 H (1.3-7.7) k/uL Lymphocytes # 0.5 L (1.0-4.8) k/uL Sodium 136 L (137-145) mmol/L Potassium (3.5-5.5) mmol/L BUN (9.0-27.0) mg/dL Creatinine (0.6-1.5) mg/dL BUN/Creatinine Ratio (12.00-20.00) Ratio Glucose 110 H (74-99) mg/dL Calcium (8.7-10.3) mg/dL Total Bilirubin 1.5 H (0.2-1.3) mg/dL Procalcitonin (0.02-0.50) ng/mL Urine Protein 1+ H (Negative) Ur Leukocyte Esterase Trace H (Negative) Urine Bacteria Rare H (None) /hpf Urine Mucus Rare H (None) /hpf 05/17/24 05/18/24 05/18/24 Range/Units 13:00 06:18 06:18 WBC 18.25 H (3.8-10.6) k/uL RBC 3.50 L (4.10-5.20) X 10*6/uL Hgb 10.0 L (12.0-15.0) g/dL Hct 31.6 L (37.2-46.3) % MCHC 31.6 L (32.0-37.0) g/dL MPV 12.7 H (9.5-12.2) FL Immature Gran # 0.12 H (0.00-0.04) X 10*3/uL Neutrophils # 15.28 H (1.3-7.7) k/uL Lymphocytes # (1.0-4.8) k/uL Sodium (137-145) mmol/L Potassium 3.3 L (3.5-5.5) mmol/L BUN 8.8 L (9.0-27.0) mg/dL Creatinine 0.4 L (0.6-1.5) mg/dL BUN/Creatinine Ratio 22.00 H (12.00-20.00) Ratio Glucose (74-99) mg/dL Calcium 7.5 L (8.7-10.3) mg/dL Total Bilirubin (0.2-1.3) mg/dL Procalcitonin 0.68 H (0.02-0.50) ng/mL Urine Protein (Negative) Ur Leukocyte Esterase (Negative) Urine Bacteria (None) /hpf Urine Mucus (None) /hpf Assessment and Plan Assessment: Community-acquired pneumonia, mainly right basal more than left Sepsis secondary to above with fever and leukocytosis Plan: Continue with antibiotic, ceftriaxone and Zithromax Follow-up sputum culture and blood culture Infectious disease consult Pulmonary team consult Bronchodilator Continue with oxygen therapy as needed Labs and medication were reviewed.. Continue with symptomatic treatment. onitor labs and vitals. DVT and GI prophylaxis. Further recommendations as per clinical course of the patient DVT prophylaxis: Subcutaneous heparin GI Prophylaxis: Pepcid Prognosis is guarded
[2024-05-18] MEDS: POTASSIUM CHLORIDE ER 20 MEQ TAB.ER PO SCH (10:35)
[2024-05-18] MEDS: FUROSEMIDE 10 MG/ML 2 ML VIAL IV ONE (10:35)
[2024-05-18] MEDS: guaiFENesin-DM 100-10MG/5ML 10 ML CUP PO PRN (10:35)
[2024-05-18] MEDS: ACETAMINOPHEN TAB 325 MG TAB PO PRN (12:38)
--- NOTE | 2024-05-18 14:24 | P.CNPUL ---
History of Present Illness Consult date: 05/18/24 Requesting physician: Gonzalez Salter Reason for consult: dyspnea, cough, chest pain, abnormal CXR/CT Chief complaint: Chest pain, cough, congestion History of present illness: This is a very pleasant 28-year-old female patient with no significant past medical history. Non-smoker. Works as a respiratory therapist. She has a 3- week history of congested cough with phlegm, 1 week ago she developed more shortness of breath and some blood-tinged sputum. Last night she developed chills and diaphoresis and left-sided chest pain and came to the emergency room. Chest x-ray reveals airspace opacities in the retrocardiac area of the left lung posterior. White count 18.2. Hemoglobin 10.0. Platelets 163. Sodium 140. Potassium 3.3. Bicarb 23. BUN 9. Creatinine 0.4. Glucose 85. Viral sc reen negative. Urine hCG negative. She had a Tmax of 102.6. She is seen today in consultation in the emergency department. Currently sitting up on a stretcher. Awake and alert in no acute distress. She does have a loose productive cough. She does have chest tightness and wheezing. She is ignacio ntaining O2 saturations in the upper 90s on 2 L/min per nasal cannula. Currently afebrile. Hemodynamically stable. She has been initiated on ceftriaxone and azithromycin along with Robitussin and Ventolin as needed. Receiving normal saline at 130 mL/h. Review of Systems REVIEW OF SYSTEMS: CONSTITUTIONAL: Positive for fever and chills. Denies any recent significant weight loss or weight gain. EYES: Denies change in vision. EARS, NOSE, MOUTH, THROAT: Denies headaches, denies sore throat. CARDIOVASCULAR: Positive for left posterior chest pain, no palpitations or s yncopal episodes. RESPIRATORY: Positive for shortness of breath, cough, congestion, hemoptysis. GASTROINTESTINAL: Denies change in appetite, denies abdominal pain GENITOURINARY: Denies hematuria, denies infections. MUSKULOSKELETAL: Denies pain, denies swelling. INTEGUMENTARY: Denies rash, denies eczema. NEUROLOGICAL: Denies recent memory loss, no recent seizure activity. PSYCHIATRIC: Denies anxiety, denies depression. HEMATOLOGIC/LYMPHATIC: Denies anemia, denies enlarged lymph nodes. Past Medical History Past Medical History: Asthma Additional Past Medical History / Comment(s): kidney stones. IBS History of Any Multi-Drug Resistant Organisms: None Reported Past Surgical History: Section, Orthopedic Surgery Additional Past Surgical History / Comment(s): right foot surgery Past Anesthesia/Blood Transfusion Reactions: No Reported Reaction, Motion Sickness Past Psychological History: No Psychological Hx Reported Smoking Status: Never smoker Past Alcohol Use History: None Reported Past Drug Use History: None Reported - Past Family History Father Family Medical History: Deep Vein Thrombosis (DVT), Pulmonary Embolus Medications and Allergies Home Medications Medication Instructions Recorded Confirmed Type Albuterol Sulfate [Ventolin HFA] 2 puff INHALATION RT-Q6H PRN 12/03/23 05/17/24 History Azithromycin [Zithromax Z Pack] See Taper PO DIRECTED 05/17/24 05/17/24 History predniSONE [Deltasone] 20 mg PO BID 05/17/24 05/17/24 History Allergies Allergy/AdvReac Type Severity Reaction Status Date / Time bee venom protein (honey bee) Allergy Anaphylaxis Verified 05/17/24 14:20 Physical Exam Vitals: Vital Signs Temp Pulse Pulse Resp BP BP Pulse Ox 05/18/24 07:43 93 18 108/58 05/18/24 06:04 98.8 F 81 19 92/58 97 05/18/24 00:06 97.9 F 91 17 115/55 95 05/17/24 20:38 97.8 F 85 16 101/61 96 05/17/24 18:39 97.5 F L 89 20 101/60 95 05/17/24 15:54 100 F H 105 H 20 97 05/17/24 14:28 101.1 F H GENERAL EXAM: Alert, pleasant 28-year-old female, on 2 L nasal cannula, fairly, comfortable in no apparent distress. HEAD: Normocephalic. EYES: Normal reaction of pupils, equal size. NOSE: Clear with pink turbinates. THROAT: No erythema or exudates. NECK: No masses, no JVD. CHEST: No chest wall deformity. LUNGS: Equal air entry with crackles and egophony over the left base. CVS: S1 and S2 normal with no audible murmur, regular rhythm. ABDOMEN: No hepatosplenomegaly, normal bowel sounds, no guarding or rigidity. SPINE: No scoliosis or deformity SKIN: No rashes CENTRAL NERVOUS SYSTEM: No focal deficits, tone is normal in all 4 extremities. EXTREMITIES: There is no peripheral edema. No clubbing, no cyanosis. Peripheral pulses are intact. Results - Laboratory Findings CBC and BMP: 05/18/24 06:18 05/18/24 06:18 PT/INR, D-dimer PT 11.8 sec (10.0-12.5) 05/17/24 13:00 INR 1.1 (<1.2) 05/17/24 13:00 Abnormal lab findings: Abnormal Labs 05/17/24 05/17/24 05/17/24 13:00 13:00 13:00 WBC 17.3 H RBC Hgb Hct MCHC MPV Immature Gran # Neutrophils # 16.2 H Lymphocytes # 0.5 L Sodium 136 L Potassium BUN Creatinine BUN/Creatinine Ratio Glucose 110 H Calcium Total Bilirubin 1.5 H Procalcitonin Urine Protein 1+ H Ur Leukocyte Esterase Trace H Urine Bacteria Rare H Urine Mucus Rare H 05/17/24 05/18/24 05/18/24 13:00 06:18 06:18 WBC 18.25 H RBC 3.50 L Hgb 10.0 L Hct 31.6 L MCHC 31.6 L MPV 12.7 H Immature Gran # 0.12 H Neutrophils # 15.28 H Lymphocytes # Sodium Potassium 3.3 L BUN 8.8 L Creatinine 0.4 L BUN/Creatinine Ratio 22.00 H Glucose Calcium 7.5 L Total Bilirubin Procalcitonin 0.68 H Urine Protein Ur Leukocyte Esterase Urine Bacteria Urine Mucus - Diagnostic Findings Chest x-ray: image reviewed Assessment and Plan Assessment: Acute hypoxic respiratory failure secondary to a community acquired left lung pneumonia, haziness in the right lung. Procalcitonin 0.68. Viral screen negative Febrile illness secondary to above Leukocytosis secondary to above Plan: The patient was seen and evaluated Chest x-ray, labs and medications reviewed Continue ceftriaxone and azithromycin Robitussin and albuterol as needed Decrease fluids to KVO Follow-up chest x-ray in a.m. Treat down the FiO2 as tolerated We will continue to follow and make further recommendations based on her clinical status I have personally seen and examined the patient, performed the documentation and the assessment and plan as written. Number of minutes spent on the visit: 20 Dictation was produced using [employer] software. Please excuse any grammatical, word or spelling errors.
--- NOTE | 2024-05-18 15:06 | P.PN ---
Subjective Progress Note Date: 05/18/24 Principal diagnosis: Reason for follow-up is sepsis and pneumonia Patient is a 28-year-old female with a past medical history nephric and for asthma kidney stone IBS no history of smoking presenting to the hospital for evaluation of increasing shortness of breath and cough patient has been diagnosed with left-sided pneumonia with sepsis. On today's evaluation that is 05/18/2024, Patient did have resolution of her fever is afebrile today, patient is currently on room air and denies having any shortness of breath, the patient left-sided chest pain is down to 2 out of 10 compared to 7 out of 10 yesterday, continue to have a cough to decrease in intensity. Patient white count is 18.25, creatinine 0.4 procalcitonin 0.68 cultures currently pending Objective - Vital Signs Vital signs: Vital Signs Temp 98.8 F 05/18/24 06:04 Pulse 93 05/18/24 07:43 Resp 18 05/18/24 07:43 BP 108/58 05/18/24 07:43 Pulse Ox 97 05/18/24 06:04 FiO2 Intake & Output 05/17/24 05/18/24 05/18/24 18:59 06:59 18:59 Weight 87.543 kg - Exam GENERAL DESCRIPTION: Middle-age female lying in bed in no distress RESPIRATORY SYSTEM: Unlabored breathing , decreased breath sounds at bases HEART: S1 S2 regular rate and rhythm , ABDOMEN: Soft , no tenderness EXTREMITIES: No edema feet - Labs CBC & Chem 7: 05/18/24 06:18 05/18/24 06:18 Labs: Abnormal Lab Results - Last 24 Hours (Table) 05/17/24 05/17/24 05/17/24 Range/Units 13:00 13:00 13:00 WBC 17.3 H (3.8-10.6) k/uL RBC (4.10-5.20) X 10*6/uL Hgb (12.0-15.0) g/dL Hct (37.2-46.3) % MCHC (32.0-37.0) g/dL MPV (9.5-12.2) FL Immature Gran # (0.00-0.04) X 10*3/uL Neutrophils # 16.2 H (1.3-7.7) k/uL Lymphocytes # 0.5 L (1.0-4.8) k/uL Sodium 136 L (137-145) mmol/L Potassium (3.5-5.5) mmol/L BUN (9.0-27.0) mg/dL Creatinine (0.6-1.5) mg/dL BUN/Creatinine Ratio (12.00-20.00) Ratio Glucose 110 H (74-99) mg/dL Calcium (8.7-10.3) mg/dL Total Bilirubin 1.5 H (0.2-1.3) mg/dL Procalcitonin (0.02-0.50) ng/mL Urine Protein 1+ H (Negative) Ur Leukocyte Esterase Trace H (Negative) Urine Bacteria Rare H (None) /hpf Urine Mucus Rare H (None) /hpf 05/17/24 05/18/24 05/18/24 Range/Units 13:00 06:18 06:18 WBC 18.25 H (3.8-10.6) k/uL RBC 3.50 L (4.10-5.20) X 10*6/uL Hgb 10.0 L (12.0-15.0) g/dL Hct 31.6 L (37.2-46.3) % MCHC 31.6 L (32.0-37.0) g/dL MPV 12.7 H (9.5-12.2) FL Immature Gran # 0.12 H (0.00-0.04) X 10*3/uL Neutrophils # 15.28 H (1.3-7.7) k/uL Lymphocytes # (1.0-4.8) k/uL Sodium (137-145) mmol/L Potassium 3.3 L (3.5-5.5) mmol/L BUN 8.8 L (9.0-27.0) mg/dL Creatinine 0.4 L (0.6-1.5) mg/dL BUN/Creatinine Ratio 22.00 H (12.00-20.00) Ratio Glucose (74-99) mg/dL Calcium 7.5 L (8.7-10.3) mg/dL Total Bilirubin (0.2-1.3) mg/dL Procalcitonin 0.68 H (0.02-0.50) ng/mL Urine Protein (Negative) Ur Leukocyte Esterase (Negative) Urine Bacteria (None) /hpf Urine Mucus (None) /hpf Assessment and Plan (1) Pneumonia Current Visit: Yes Status: Acute Code(s): J18.9 - PNEUMONIA, UNSPECIFIED ORGANISM SNOMED Code(s): 459157560 (2) Sepsis Current Visit: Yes Status: Acute Code(s): A41.9 - SEPSIS, UNSPECIFIED ORGANISM SNOMED Code(s): 56721950 Plan: 1patient presented hospital with sepsis in this patient who did have fever tachycardia elevated white count source is left-sided pneumonia likely community-acquired failing outpatient oral Zithromax therapy 2-blood and sputum culture have been placed currently pending did have procalcitonin 0.68. 3patient to continue with the Rocephin Zithromax while waiting for the workup to be completed Dictation was produced using [employer] dictation software. please excuse any g rammatical, word or spelling errors. Time with Patient: Less than 30
[2024-05-19 02:03] VITALS: RESP 16
--- NOTE | 2024-05-19 07:21 | XR ---
EXAMINATION TYPE: XR chest 1V portable DATE OF EXAM: 05/19/2024 Comparison: 05/17/2024 Clinical History: 28-year-old female follow-up pneumonia, cough Findings: Heart upper limits of normal in size. Worsening aeration left greater than right lung bases with incr easing opacity. Upper lungs remain clear. Impression: Slight worsening left greater than right basilar airspace disease. [facility], , 05/19/2024 7:19 AM
[2024-05-19 07:37] VITALS: BP 104/63; PULSE 92; TEMP 98.7
[2024-05-19 08:36] LABS: Basophils # (A) 0.05 X 10*3/uL (0.00-0.10); Basophils % (A) 0.3 %; Eosinophils # (A) 0.43 X 10*3/uL (0.04-0.35); HGB 9.8 g/dL (12.0-15.0); Lymphocytes # (A) 1.45 X 10*3/uL (0.90-5.00); Lymphocytes % (A) 10.1 %; MCHC 31.6 g/dL (32.0-37.0); MCV 91.7 FL (80.0-97.0); Mean Platelet Volume 12.7 FL (9.5-12.2); Monocytes % (A) 3.5 %; NRBC Per 100 WBC 0 X 10*3/uL (0.00-0.01); Neutrophils # (A) 11.88 X 10*3/uL (1.80-7.70); Neutrophils % (A) 82.5 %; Platelet Count 177 X 10*3/uL (140-440); RBC 3.38 X 10*6/uL (4.10-5.20); RDW 13.3 % (11.5-14.5); WBC 14.39 X 10*3/uL (4.50-10.00)
[2024-05-19 08:56] LABS: Blood Urea Nitrogen 9.4 mg/dL (9.0-27.0); Calcium 7.7 mg/dL (8.7-10.3); Carbon Dioxide 22.9 mmol/L (21.6-31.8); Chloride 109 mmol/L (96-109); Glucose 110 mg/dL (70-110); Potassium 3.5 mmol/L (3.5-5.5); Sodium 142 mmol/L (135-145)
[2024-05-19] MEDS: IBUPROFEN 400 MG TAB PO PRN (09:03)
--- NOTE | 2024-05-19 12:31 | P.PN ---
Subjective Progress Note Date: 05/19/24 Principal diagnosis: Reason for follow-up is sepsis and pneumonia Patient is a 28-year-old female with a past medical history nephric and for asthma kidney stone IBS no history of smoking presenting to the hospital for evaluation of increasing shortness of breath and cough patient has been diagnosed with left-sided pneumonia with sepsis. On today's evaluation that is 05/19/2024, patient has been afebrile, patient is breathing comfortably and is currently on room air, patient left-sided chest pain has decreased in intensity, no significant cough and sputum production no nausea vomiting abdominal pain or diarrhea. Patient white count is down to 14.3 night creatinine 0.5 blood and sputum cultures currently pending chest x-ray this morning slight worsening left g reater than right basilar airspace disease Objective - Vital Signs Vital signs: Vital Signs Temp 98.7 F 05/19/24 07:03 Pulse 92 05/19/24 07:03 Resp 16 05/19/24 07:03 BP 104/63 05/19/24 07:03 Pulse Ox 97 05/19/24 07:03 FiO2 Intake & Output 05/18/24 05/19/24 05/19/24 18:59 06:59 18:59 Weight 87.543 kg Other: Voiding Method Toilet # Voids 1 4 - Exam GENERAL DESCRIPTION: Middle-age female lying in bed in no distress RESPIRATORY SYSTEM: Unlabored breathing , decreased breath sounds at bases HEART: S1 S2 regular rate and rhythm , ABDOMEN: Soft , no tenderness EXTREMITIES: No edema feet - Labs CBC & Chem 7: 05/19/24 03:58 05/19/24 03:58 Labs: Abnormal Lab Results - Last 24 Hours (Table) 05/19/24 05/19/24 Range/Units 03:58 03:58 WBC 14.39 H (4.50-10.00) X 10*3/uL RBC 3.38 L (4.10-5.20) X 10*6/uL Hgb 9.8 L (12.0-15.0) g/dL Hct 31.0 L (37.2-46.3) % MCHC 31.6 L (32.0-37.0) g/dL MPV 12.7 H (9.5-12.2) FL Immature Gran # 0.08 H (0.00-0.04) X 10*3/uL Neutrophils # 11.88 H (1.80-7.70) X 10*3/uL Eosinophils # 0.43 H (0.04-0.35) X 10*3/uL Creatinine 0.5 L (0.6-1.5) mg/dL Calcium 7.7 L (8.7-10.3) mg/dL Microbiology - Last 24 Hours (Table) 05/17/24 14:25 Gram Stain - Preliminary Sputum Sputum Culture - Preliminary 05/17/24 14:28 Blood Culture - Preliminary Blood Assessment and Plan (1) Pneumonia Current Visit: Yes Status: Acute Code(s): J18.9 - PNEUMONIA, UNSPECIFIED ORGANISM SNOMED Code(s): 532228773 (2) Sepsis Current Visit: Yes Status: Acute Code(s): A41.9 - SEPSIS, UNSPECIFIED ORGANISM SNOMED Code(s): 84172156 Plan: 1[facility] with sepsis in this patient who did have fever tachycardia elevated white count source is left-sided pneumonia likely community-acquired failing outpatient oral Zithromax therapy 2-blood and sputum culture have been placed currently pending did have procalcitonin 0.68. 3patient x-ray reported slight worsening clinically not showing any worsening did have resolution of fever white count is trending down we will continue with Rocephin Zithromax while waiting for the culture to finalize Dictation was produced using [employer] dictation software. please excuse any grammatical, word or spelling errors. Time with Patient: Less than 30
--- NOTE | 2024-05-19 13:52 | P.PN ---
Subjective Progress Note Date: 05/19/24 This is a very pleasant 28-year-old female patient with no significant past medical history. Non-smoker. Works as a respiratory therapist. She has a 3- week history of congested cough with phlegm, 1 week ago she developed more shortness of breath and some blood-tinged sputum. Last night she developed c hills and diaphoresis and left-sided chest pain and came to the emergency room. Chest x-ray reveals airspace opacities in the retrocardiac area of the left lung posterior. White count 18.2. Hemoglobin 10.0. Platelets 163. Sodium 140. Potassium 3.3. Bicarb 23. BUN 9. Creatinine 0.4. Glucose 85. Viral screen negative. Urine hCG negative. She had a Tmax of 102.6. She is seen today in consultation in the emergency department. Currently sitting up on a stretcher. Awake and alert in no acute distress. She does have a loose productive cough. She does have chest tightness and wheezing. She is maintaining O2 saturations in the upper 90s on 2 L/min per nasal cannula. Currently afebrile. Hemodynamically stable. She has been initiated on ceftriaxone and azithromycin along with Robitussin and Ventolin as needed. Receiving normal saline at 130 mL/h. The patient is seen today May 19, 2024 in follow-up on the regular medical floor. She is currently sitting up in bed. Awake and alert in no acute distress. Maintaining good O2 saturations in the 90s on room air. She is still somewhat congested. She has a loose cough. Feeling a bit better today compared to yesterday. X-ray continues to show left greater than right basilar airspace disease. Procalcitonin was 0.68. She is continued on ceftriaxone and azithromycin. Blood and sputum cultures are pending. White count 14.3. Hemoglobin 9.8. Platelets 177. Sodium 142. Potassium 3.5. Bicarb 23. BUN 9. Creatinine 0.5. Glucose 110. Viral screen was negative. Legionella screen negative. Mycoplasma pneumonia screen negative. Objective - Vital Signs Vital signs: Vital Signs Temp 98.7 F 05/19/24 07:03 Pulse 92 05/19/24 07:03 Resp 16 05/19/24 11:03 BP 104/63 05/19/24 07:03 Pulse Ox 97 05/19/24 07:03 FiO2 Intake & Output 05/18/24 05/19/24 05/19/24 18:59 06:59 18:59 Intake Total 400 Balance 400 Weight 87.543 kg Intake: Oral 400 Other: Voiding Method Toilet Toilet # Voids 1 4 - Exam GENERAL EXAM: Alert, pleasant 28-year-old female, on room air, comfortable in no apparent distress. HEAD: Normocephalic. EYES: Normal reaction of pupils, equal size. NOSE: Clear with pink turbinates. THROAT: No erythema or exudates. NECK: No masses, no JVD. CHEST: No chest wall deformity. LUNGS: Equal air entry with crackles and egophony over the left base. CVS: S1 and S2 normal with no audible murmur, regular rhythm. ABDOMEN: No hepatosplenomegaly, normal bowel sounds, no guarding or rigidity. SPINE: No scoliosis or deformity SKIN: No rashes CENTRAL NERVOUS SYSTEM: No focal deficits, tone is normal in all 4 extremities. EXTREMITIES: There is no peripheral edema. No clubbing, no cyanosis. Peripheral pulses are intact. - Labs CBC & Chem 7: 05/19/24 03:58 05/19/24 03:58 Labs: Abnormal Lab Results - Last 24 Hours (Table) 05/19/24 05/19/24 Range/Units 03:58 03:58 WBC 14.39 H (4.50-10.00) X 10*3/uL RBC 3.38 L (4.10-5.20) X 10*6/uL Hgb 9.8 L (12.0-15.0) g/dL Hct 31.0 L (37.2-46.3) % MCHC 31.6 L (32.0-37.0) g/dL MPV 12.7 H (9.5-12.2) FL Immature Gran # 0.08 H (0.00-0.04) X 10*3/uL Neutrophils # 11.88 H (1.80-7.70) X 10*3/uL Eosinophils # 0.43 H (0.04-0.35) X 10*3/uL Creatinine 0.5 L (0.6-1.5) mg/dL Calcium 7.7 L (8.7-10.3) mg/dL Microbiology - Last 24 Hours (Table) 05/17/24 14:25 Gram Stain - Preliminary Sputum Sputum Culture - Preliminary 05/17/24 14:28 Blood Culture - Preliminary Blood Assessment and Plan Assessment: Acute hypoxic respiratory failure secondary to a community acquired pneumonia Procalcitonin 0.68. Viral screen negative. Legionella screen negative. Mycoplasma screen negative. Febrile illness secondary to above, improved Leukocytosis secondary to above, trending down Plan: The patient was seen and evaluated Chest x-ray, labs and medications reviewed Continue ceftriaxone and azithromycin Improved and on room air Not quite back to her baseline We will continue to follow I have personally seen and examined the patient, performed the documentation and the assessment and plan as written. Number of minutes spent on the visit: 10 Dictation was produced using [employer] dictation software. Please excuse any grammatical, word or spelling errors.
--- NOTE | 2024-05-19 14:59 | P.DS ---
Providers Date of admission: 05/17/24 14:18 Discharge Diagnosis: Leukocytosis Acute hypoxic respiratory failure secondary to community-acquired pneumonia Febrile illness Sepsis secondary to above Hospital Course: This is a pleasant 28 years old female who presents with worsening dyspnea over 3 days. Associated with cough and white to green phlegm for 3 weeks, this worsened by chest pain about 4/10 for the last 4 days felt like heaviness and comes mainly with coughing She vomited twice today, other than that she denies any abdominal pain or diarrhea, no urinary complaint. She feels dizzy but no headache weakness or numbness. She is generally weak and looks fatigued with malaise She denies smoking alcohol or illicit drugs She had a fever on admission 102.6. She is mildly tachycardic and tachypneic. Labs showing leukocytosis, rest of labs were unremarkable including BMP, LFT, IN R, troponin, UA looks concentrated Influenza A and type B, RSV, SARS (coronavirus) are undetected Blood culture is requested and is pending EKG showing sinus tachycardia at 109 Chest x-ray showing airspace opacity on both sides, more on the right basal side. Patient admitted to the general medicine service. Pulmonology and infectious disease following. 05/18/2024: Patient still severely weak with malaise. She is coughing a lot. She has mild to moderate tachypnea while at rest. She reports slight improvement in her breathing difficulty. She is complaining from mild headache She is concerned about her fingers getting swollen therefore we will give a small dose of IV Lasix 20 mg. I explained to her the importance of IV fluid and she agrees to keep normal saline, currently running at 130 mL/h She has no more fever Leukocytosis mildly worse at 18.2. Hemoglobin dropped from 13 down to 10 with some elements of hemodilution Blood culture and sputum culture are still pending and currently covered with ceftriaxone and Zithromax Given her severe respiratory symptoms we are going to consult pulmonary service as well 05/19/2024: Patient seen and examined at bedside. Still with cough and some malaise. Leukocytosis improving. Blood cultures negative after 24 hours. Sputum cultures negative. Afebrile patient breathing on room air. She is being discharged with Ceftin 500 mg p.o. for 5 days. She is to follow-up with her PCP and pulmonology. She is being discharged home. Vital signs reviewed and stable. Physical examination: Vital signs reviewed General: non toxic, no distress, appears at stated age, normal weight Derm: no unusual rashes/lesions, warm Head: atraumatic, normocephalic, symmetric Eyes: EOMI, anicteric sclera, pupils equal round reactive to light ENT: Nose and ears atraumatic Mouth: no lip lesion, mucus membranes moist Cardiovascular: S1S2 reg, no murmur, positive dorsalis pedis pulse bilateral, no edema Lungs: CTA bilateral, no rhonchi, no rales, no accessory muscle use Abdominal: soft, nontender to palpation, no guarding Ext: muscle strength 5 out of 5 in all 4 extremities grossly, no gross muscle atrophy Neuro: CN II-XI grossly intact, no gross focal neuro deficits Psych: Alert, oriented to person, place, and time A total of greater than 30 minutes of time were spent preparing this complex discharge summary. Patient was discharge on May 19, 2024 at 1:44 PM. Expected date of discharge: 05/19/24 Attending physician: Gonzalez Salter MD Consults: 05/17/24 14:29 Consult Physician Urgent Consulting Provider: Raegan Cage Consult Reason/Comments: sepsis/pneumonia Do you want consulting provider notified?: Yes 05/18/24 10:10 Consult Physician Routine Consulting Provider: Maynor Grant Consult Reason/Comments: PNA Do you want consulting provider notified?: Yes Primary care physician: Jose Chan Patient Condition at Discharge: Stable Plan - Discharge Summary New Discharge Prescriptions: New cefUROXime axetiL [Ceftin] 500 mg PO BID 5 Days #10 tab Continue Albuterol Sulfate [Ventolin HFA] 2 puff INHALATION RT-Q6H PRN PRN Reason: Shortness Of Breath predniSONE [Deltasone] 20 mg PO BID Azithromycin [Zithromax Z Pack] See Taper PO DIRECTED Discharge Medication List Albuterol Sulfate [Ventolin HFA] 2 puff INHALATION RT-Q6H PRN 12/03/23 [History] Azithromycin [Zithromax Z Pack] See Taper PO DIRECTED 05/17/24 [History] predniSONE [Deltasone] 20 mg PO BID 05/17/24 [History] cefUROXime axetiL [Ceftin] 500 mg PO BID 5 Days #10 tab 05/19/24 [Rx] Follow up Appointment(s)/Referral(s): Filemon Sahu MD [STAFF PHYSICIAN] - 1 Week Jose Chan DO [Primary Care Provider] - 1-2 days Patient Instructions/Handouts: Pneumonia (DC) Discharge Disposition: HOME SELF-CARE
== END 2024-05-19 15:49 | disposition home or self-care (01) | DRG 720 ==
LOC: EC 12:12 → 4SSUR 14:18
PROVIDERS: ADMIT Internal Medicine; ATTEND Internal Medicine
DX: A41.9 Sepsis, unspecified organism (principal); J18.9 Pneumonia, unspecified organism; J96.01 Acute respiratory failure with hypoxia; Z87.442 Personal history of urinary calculi; J45.909 Unspecified asthma, uncomplicated; K58.9 Irritable bowel syndrome, unspecified; Z79.899 Other long term (current) drug therapy; R04.2 Hemoptysis
CPT/HCPCS: 36415; 71045; 71046; 80048; 80053; 81001; 81025; 83605; 84145; 84484; 84702; 85025; 85610; 85730; 86738; 87040; 87070; 87205; 87449; 87636; 96361; 96374; 96375; 99291

== ENCOUNTER → 2024-07-30 | Outpatient (CLI) | payer OTHER ==
--- NOTE | 2024-07-30 10:30 | XR ---
EXAMINATION TYPE: XR KUB DATE OF EXAM: 07/30/2024 10:12 AM CLINICAL HISTORY: Calculus of kidney TECHNIQUE: Two supine KUB images of the abdomen are obtained. COMPARISON: Abdominal x-ray December 04, 2023. FINDINGS: Stable 3 mm right renal calculus at the L2-L3 disc space level. No definitive left-sided ne phrolithiasis. Lung bases are clear. Overall nonobstructive bowel gas pattern. Osseous structures are intact. IMPRESSION: As above. [facility], , 07/30/2024 10:28 AM
== END | disposition home or self-care (01) ==
LOC: RADXRMAIN 10:00
PROVIDERS: ATTEND Urology
DX: N20.0 Calculus of kidney (principal)
CPT/HCPCS: 74018

== ENCOUNTER 2024-11-23 23:45 | Emergency (ER) | payer OTHER ==
--- NOTE | 2024-11-24 00:54 | ED ---
General Adult HPI - General Source: patient, RN notes reviewed Mode of arrival: ambulatory Limitations: no limitations - History of Present Illness Onset/Timin -: days(s) Location: back Radiation: non-radiation Severity scale (1-10): 9 Consistency: constant Improves with: immobilization, other (Standing) Worsens with: movement, other (Sitting) Associated Symptoms: nausea/vomiting Treatments Prior to Arrival: other (Tylenol at 2100) <Erasmo Lynn - Last Filed: 11/24/24 03:51> - General Source: patient, RN notes reviewed, old records reviewed Mode of arrival: ambulatory Limitations: no limitations - History of Present Illness -: days(s) Consistency: constant Worsens with: movement Associated Symptoms: nausea/vomiting <Amadou Robles - Last Filed: 11/26/24 03:10> - General Chief complaint: Back Pain/Injury Stated complaint: lower back pain Time Seen by Provider: 11/24/24 00:03 - History of Present Illness Initial comments: This is a 29-year-old female with with history including nephrolithiasis and IBS presenting for low back pain (04/01) x 7 days. Patient states she was prescribed Keflex for a UTI prescribed from an urgent care x 3 days ago due to associated dysuria. Patient states she is having worsening low back pain especially on right side. Patient states pain worsens with movement and while seated and improves when standing. Endorses nausea/vomiting and subjective fever. Denies blood in urine. Denies chills, chest pain, dyspnea, abdominal pain, hematemesis, diarrhea, constipation. (Erasmo Lynn) 29-year-old female for severe back pain severe lower back pain with history of kidney stones history of UTI patient states pain is severe and increasing (Amadou Robles) - Related Data Home Medications Medication Instructions Recorded Confirmed Albuterol Sulfate [Ventolin HFA] 2 puff INHALATION RT-Q6H PRN 12/03/23 05/17/24 Azithromycin [Zithromax Z Pack] See Taper PO DIRECTED 05/17/24 05/17/24 predniSONE [Deltasone] 20 mg PO BID 05/17/24 05/17/24 Previous Rx's Medication Instructions Recorded cefuroxime axetiL [Ceftin] 500 mg PO BID 5 Days #10 tab 05/19/24 Allergies Allergy/AdvReac Type Severity Reaction Status Date / Time bee venom protein (honey bee) Allergy Anaphylaxis Verified 05/17/24 14:20 Review of Systems ROS Other: All systems not noted in ROS Statement are negative. <Erasmo Lynn - Last Filed: 11/24/24 03:51> ROS Other: All systems not noted in ROS Statement are negative. <Amadou Robles - Last Filed: 11/26/24 03:10> ROS Statement: Those systems with pertinent positive or pertinent negative responses have been documented in the HPI. Past Medical History Past Medical History: Asthma Additional Past Medical History / Comment(s): kidney stones. IBS History of Any Multi-Drug Resistant Organisms: None Reported Past Surgical History: Section, Orthopedic Surgery Additional Past Surgical History / Comment(s): right foot surgery Past Anesthesia/Blood Transfusion Reactions: No Reported Reaction, Motion Sickness Past Psychological History: Anxiety, Depression Smoking Status: Never smoker Past Alcohol Use History: None Reported Past Drug Use History: None Reported - Past Family History Father Family Medical History: Deep Vein Thrombosis (DVT), Pulmonary Embolus <Erasmo Lynn - Last Filed: 11/24/24 03:51> General Exam Limitations: no limitations General appearance: alert, in distress Head exam: Present: atraumatic, normocephalic, normal inspection Eye exam: Present: normal appearance, PERRL, EOMI. Absent: scleral icterus, conjunctival injection, periorbital swelling ENT exam: Present: normal exam, mucous membranes moist Neck exam: Present: normal inspection. Absent: tenderness, meningismus, lymphadenopathy Respiratory exam: Present: normal lung sounds bilaterally. Absent: respiratory distress, wheezes, rales, rhonchi, stridor Cardiovascular Exam: Present: regular rate, normal rhythm, normal heart sounds. Absent: systolic murmur, diastolic murmur, rubs, gallop, clicks GI/Abdominal exam: Present: soft, normal bowel sounds. Absent: distended, tenderness, guarding, rebound, rigid Extremities exam: Present: normal inspection, full ROM, normal capillary refill. Absent: tenderness, pedal edema, joint swelling, calf tenderness Back exam: Present: CVA tenderness (R), CVA tenderness (L), muscle spasm, paraspinal tenderness (Paralumbar spinal tenderness with muscle spasm). Absent: vertebral tenderness Neurological exam: Present: alert, oriented X3, CN II-XII intact Psychiatric exam: Present: normal affect, normal mood Skin exam: Present: warm, dry, intact, normal color. Absent: rash <Erasmo Lynn - Last Filed: 11/24/24 03:51> General appearance: alert, in no apparent distress, anxious Head exam: Present: atraumatic, normocephalic, normal inspection Eye exam: Present: normal appearance, PERRL, EOMI. Absent: scleral icterus, conjunctival injection, periorbital swelling ENT exam: Present: normal exam, mucous membranes moist Neck exam: Present: normal inspection. Absent: tenderness, meningismus, lymphadenopathy Respiratory exam: Present: normal lung sounds bilaterally. Absent: respiratory distress, wheezes, rales, rhonchi, stridor Cardiovascular Exam: Present: regular rate, normal rhythm, normal heart sounds. Absent: systolic murmur, diastolic murmur, rubs, gallop, clicks GI/Abdominal exam: Present: soft, normal bowel sounds. Absent: distended, tenderness, guarding, rebound, rigid Extremities exam: Present: normal inspection, full ROM, normal capillary refill. Absent: tenderness, pedal edema, joint swelling, calf tenderness Back exam: Present: normal inspection Neurological exam: Present: alert, oriented X3, CN II-XII intact Psychiatric exam: Present: normal affect, normal mood Skin exam: Present: warm, dry, intact, normal color. Absent: rash <Amadou Robles - Last Filed: 11/26/24 03:10> Course <Amadou Robles - Last Filed: 11/26/24 03:10> Vital Signs 11/23/24 11/24/24 11/24/24 23:56 03:36 05:28 Temperature 97.7 F 98.3 F 98.3 F Pulse Rate 65 63 57 L Respiratory 18 16 16 Rate Blood Pressure 102/61 109/63 106/67 O2 Sat by Pulse 99 98 99 Oximetry - Reevaluation(s) Reevaluation #1: 11/24/24 04:37 Medical records reviewed (Amadou Robles) Reevaluation #2: 11/24/24 04:37 Symptoms and pain is difficult to control here in the ER (Amadou Robles) Reevaluation #3: 11/24/24 04:37 Patient informed of results questions answered (Amadou Robles) Reevaluation #4: Was pt. sent in by a medical professional or institution (FEI Whelan, DIMETHYLANILINE SULFATOR OPERATOR, urgent care, hospital, or long term...) When possible be specific @ -no Did you speak to anyone other than the patient for history (EMS, parent, family, police, friend...)? What history was obtained from this source @ -no Did you review nursing and triage notes (agree or disagree)? Why? @ -agree Are old charts reviewed (outside hosp., previous admission, EMS record, old EKG, old radiological studies, urgent care reports/EKG's, long term records)? Report findings @ -yes Differential Diagnosis (chest pain, altered mental status, abdominal pain women, abdominal pain men, vaginal bleeding, weakness, fever, dyspnea, syncope, headache, dizziness, GI bleed, back pain, seizure, CVA, palpatations, mental health, musculoskeletal)? @ -prior EKG interpreted by me (3pts min.). @ -no X-rays interpreted by me (1pt min.). @ -no CT interpreted by me (1pt min.). @ -yes negative for acute disease U/S interpreted by me (1pt. min.). @ -no What testing was considered but not performed or refused? (CT, X-rays, U/S, labs)? Why? @ -none What meds were considered but not given or refused? Why? @ -none Did you discuss the management of the patient with other professionals (professionals i.e. FEI Whelan, DIMETHYLANILINE SULFATOR OPERATOR, lab, RT, psych nurse, social work supervisor, microsoft office instructor, teacher, workplace rehabilitation officer, case aide)? Give summary @ -no Was smoking cessation discussed for >3mins.? @ -no Was critical care preformed (if so, how long)? @ -no Were there social determinants of health that impacted care today? How? (Homelessness, low income, unemployed, alcoholism, drug addiction, transportation, low edu. Level, literacy, decrease access to med. care, alf, rehab)? @ -none Was there de-escalation of care discussed even if they declined (Discuss DNR or withdrawal of care, Hospice)? DNR status @ -no What co-morbidities impacted this encounter? (DM, HTN, Smoking, COPD, CAD, Cancer, CVA, ARF, Chemo, Hep., AIDS, mental health diagnosis, sleep apnea, morbid obesity)? @ -none Was patient admitted / discharged? Hospital course, mention meds given and route, prescriptions, significant lab abnormalities, going to OR and other pertinent info. @ -29 female with severe back pain and abdominal pain pain well-controlled here in the ER no findings here on CT scan or labs patient can be discharged home Discharge abdominal pain Undiagnosed new problem with uncertain prognosis? @ -no Drug Therapy requiring intensive monitoring for toxicity (Heparin, Nitro, Insulin, Cardizem)? @ -no Were any procedures done? @ -no Diagnosis/symptom? @ - Acute, or Chronic, or Acute on Chronic? @ -Acute Uncomplicated (without systemic symptoms) or Complicated (systemic symptoms)? @ -Complicated Side effects of treatment? @ -no Exacerbation, Progression, or Severe Exacerbation? @ -exacerbation Poses a threat to life or bodily function? How? (Chest pain, USA, [place], pneumonia, PE, COPD, DKA, ARF, appy, cholecystitis, CVA, Diverticulitis, Homicidal, Suicidal, threat to staff... and all critical care pts) @ -no (Amadou Robles) Reevaluation #5: Differential Back Pain: Strain, zoster, cauda equina syndrome, epidural abscess, vertebral osteomyelitis, discitis, fracture, subluxation, disc herniation, DJD, spinal stenosis, dissection, AAA, pancreatitis, peptic ulcer disease, pyelonephritis, kidney stone, this is not meant to be an all-inclusive list. Differential Abdominal Pain Women: Appendicitis, Cholecystitis, diverticulosis, ischemic bowel, pancreatitis, hepa titis, UTI, gastroenteritis, AAA, incarcerated hernia, bowel obstruction, constipation, inflammatory bowel, hepatitis, peptic ulcer disease, splenic infarction, perforated viscus, vulvitis, ovarian torsion, PID, kidney stone, placenta abruption, this is not meant to be an all-inclusive list (Amadou Robles) Medical Decision Making - Lab Data Result diagrams: 11/24/24 00:45 11/24/24 00:45 <Erasmo Lynn - Last Filed: 11/24/24 03:51> - Lab Data Result diagrams: 11/24/24 00:45 11/24/24 00:45 - Radiology Data Radiology results: report reviewed (CT abd pelvis is negative for acute dise ase), image reviewed <Amadou Robles Soha - Last Filed: 11/26/24 03:10> - Medical Decision Making Was pt. sent in by a medical professional or institution (FEI Whelan, DIMETHYLANILINE SULFATOR OPERATOR, urgent care, hospital, or long term...) When possible be specific @ -[No] Did you speak to anyone other than the patient for history (EMS, parent, family, police, friend...)? What history was obtained from this source @ -[No] Did you review nursing and triage notes (agree or disagree)? Why? @ -[I reviewed and agree with nursing and triage notes] Were old charts reviewed (outside hosp., previous admission, EMS record, old EKG, old radiological studies, urgent care reports/EKG's, long term records)? Report findings @ -[No old charts were reviewed] Differential Diagnosis (chest pain, altered mental status, abdominal pain women, abdominal pain men, vaginal bleeding, weakness, fever, dyspnea, syncope, headache, dizziness, GI bleed, back pain, seizure, CVA, palpatations, mental health, musculoskeletal)? @ -Differential Back Pain: Strain, zoster, cauda equina syndrome, epidural abscess, vertebral osteomyelitis, discitis, fracture, subluxation, disc herniation, DJD, spinal stenosis, dissection, AAA, pancreatitis, peptic ulcer disease, pyelonephritis, kidney stone, this is not meant to be an all-inclusive list. EKG interpreted by me (3pts min.). @ -Not done X-rays interpreted by me (1pt min.). @ -[None done] CT interpreted by me (1pt min.). @ -[None done] U/S interpreted by me (1pt. min.). @ -[None done] What testing was considered but not performed or refused? (CT, X-rays, U/S, labs)? Why? @ -[None] What meds were considered but not given or refused? Why? @ -Patient declined IV normal saline and IV morphine. Patient later accepted IV normal saline Did you discuss the management of the patient with other professionals (professionals i.e. Dr., PA, DIMETHYLANILINE SULFATOR OPERATOR, lab, RT, psych nurse, social work supervisor, microsoft office instructor, teacher, workplace rehabilitation officer, case aide)? Give summary @ -[No] Was smoking cessation discussed for >3mins.? @ -[No] Was critical care preformed (if so, how long)? @ -[No] Were there social determinants of health that impacted care today? How? (Homelessness, low income, unemployed, alcoholism, drug addiction, transportation, low edu. Level, literacy, decrease access to med. care, alf, rehab)? @ -[No] Was there de-escalation of care discussed even if they declined (Discuss DNR or withdrawal of care, Hospice)? DNR status @ -[No] What co-morbidities impacted this encounter? (DM, HTN, Smoking, COPD, CAD, Cancer, CVA, ARF, Chemo, Hep., AIDS, mental health diagnosis, sleep apnea, morbid obesity)? @ -[None] Was patient admitted / discharged? Hospital course, mention meds given and route, prescriptions, significant lab abnormalities, going to OR and other pertinent info. @ -[hospital course] Undiagnosed new problem with uncertain prognosis? @ -[No] Drug Therapy requiring intensive monitoring for toxicity (Heparin, Nitro, Insulin, Cardizem)? @ -[No] Were any procedures done? @ -[No] Diagnosis/symptom? @ -[default] Acute, or Chronic, or Acute on Chronic? @ -Acute Uncomplicated (without systemic symptoms) or Complicated (systemic symptoms)? @ -Complicated Side effects of treatment? @ -[No] Exacerbation, Progression, or Severe Exacerbation? @ -[No] Poses a threat to life or bodily function? How? (Chest pain, USA, MO, pneumonia, PE, COPD, DKA, ARF, appy, cholecystitis, CVA, Diverticulitis, Homicidal, Suicidal, threat to staff... and all critical care pts) @ -[No] (Erasmo Lynn) - Lab Data Lab Results 11/24/24 11/24/24 11/24/24 Range/Units 00:45 00:45 00:45 WBC 8.45 (4.50-10.00) 10*3/uL RBC 4.59 (4.10-5.20) 10*6/uL Hgb 13.3 (12.0-15.0) g/dL Hct 40.8 (37.2-46.3) % MCV 88.9 (80.0-97.0) fL MCH 29.0 (27.0-32.0) pg MCHC 32.6 (32.0-37.0) g/dL Plt Count 222 (140-440) 10*3/uL MPV 11.4 (9.5-12.2) fL Immature Gran % (Auto) 0.4 % Neutrophils % 64.2 % Lymphocytes % 24.3 % Monocytes % 8.2 % Eosinophils % 2.2 % Basophils % 0.7 % Immature Gran # 0.03 (0.00-0.04) 10*3/uL Neutrophils # 5.43 (1.80-7.70) 10*3/uL Lymphocytes # 2.05 (0.90-5.00) 10*3/uL Monocytes # 0.69 (0.20-1.00) 10*3/uL Eosinophils # 0.19 (0.04-0.35) 10*3/uL Basophils # 0.06 (0.00-0.10) 10*3/uL Sodium 137 (137-145) mmol/L Potassium 4.0 (3.5-5.1) mmol/L Chloride 104 (98-107) mmol/L Carbon Dioxide 26 (22-30) mmol/L Anion Gap 7 mmol/L BUN 16 (7-17) mg/dL Creatinine 0.60 (0.52-1.04) mg/dL Est GFR (CKD-EPI)AfAm >90 (>60 ml/min/1.73 sqM) Est GFR (CKD-EPI)NonAf >90 (>60 ml/min/1.73 sqM) Glucose 100 H (74-99) mg/dL Plasma Lactic Acid Carmelo 0.9 (0.7-2.0) mmol/L Calcium 9.1 (8.4-10.2) mg/dL Total Bilirubin 0.4 (0.2-1.3) mg/dL AST 21 (14-36) U/L ALT 16 (4-34) U/L Alkaline Phosphatase 64 (38-126) U/L Total Protein 6.8 (6.3-8.2) g/dL Albumin 4.2 (3.5-5.0) g/dL Lipase 96 (23-300) U/L Urine Color Urine Appearance (Clear) Urine pH (5.0-8.0) Ur Specific [place] (1.001-1.035) Urine Protein (Negative) Urine Glucose (UA) (Negative) Urine Ketones (Negative) Urine Blood (Negative) Urine Nitrite (Negative) Urine Bilirubin (Negative) Urine Urobilinogen (<2.0) mg/dL Ur Leukocyte Esterase (Negative) Urine RBC (0-5) /hpf Urine WBC (0-5) /hpf Ur Squamous Epith Cells (0-4) /hpf Urine Bacteria (None) /hpf Urine Mucus (None) /hpf Urine HCG, Qual (Not Detectd) 11/24/24 11/24/24 Range/Units 01:30 01:30 WBC (4.50-10.00) 10*3/uL RBC (4.10-5.20) 10*6/uL Hgb (12.0-15.0) g/dL Hct (37.2-46.3) % MCV (80.0-97.0) fL MCH (27.0-32.0) pg MCHC (32.0-37.0) g/dL Plt Count (140-440) 10*3/uL MPV (9.5-12.2) fL Immature Gran % (Auto) % Neutrophils % % Lymphocytes % % Monocytes % % Eosinophils % % Basophils % % Immature Gran # (0.00-0.04) 10*3/uL Neutrophils # (1.80-7.70) 10*3/uL Lymphocytes # (0.90-5.00) 10*3/uL Monocytes # (0.20-1.00) 10*3/uL Eosinophils # (0.04-0.35) 10*3/uL Basophils # (0.00-0.10) 10*3/uL Sodium (137-145) mmol/L Potassium (3.5-5.1) mmol/L Chloride (98-107) mmol/L Carbon Dioxide (22-30) mmol/L Anion Gap mmol/L BUN (7-17) mg/dL Creatinine (0.52-1.04) mg/dL Est GFR (CKD-EPI)AfAm (>60 ml/min/1.73 sqM) Est GFR (CKD-EPI)NonAf (>60 ml/min/1.73 sqM) Glucose (74-99) mg/dL Plasma Lactic Acid Carmelo (0.7-2.0) mmol/L Calcium (8.4-10.2) mg/dL Total Bilirubin (0.2-1.3) mg/dL AST (14-36) U/L ALT (4-34) U/L Alkaline Phosphatase (38-126) U/L Total Protein (6.3-8.2) g/dL Albumin (3.5-5.0) g/dL Lipase (23-300) U/L Urine Color Light Yellow Urine Appearance Cloudy H (Clear) Urine pH 6.0 (5.0-8.0) Ur Specific [place] 1.033 (1.001-1.035) Urine Protein Trace H (Negative) Urine Glucose (UA) Negative (Negative) Urine Ketones Negative (Negative) Urine Blood Negative (Negative) Urine Nitrite Negative (Negative) Urine Bilirubin Negative (Negative) Urine Urobilinogen <2.0 (<2.0) mg/dL Ur Leukocyte Esterase Large H (Negative) Urine RBC 3 (0-5) /hpf Urine WBC 5 (0-5) /hpf Ur Squamous Epith Cells 9 H (0-4) /hpf Urine Bacteria Rare H (None) /hpf Urine Mucus Few H (None) /hpf Urine HCG, Qual Not Detected (Not Detectd) Disposition <Erasmo Lynn - Last Filed: 11/24/24 03:51> Is patient prescribed a controlled substance at d/c from ED?: No Time of Disposition: 04:30 <Amadou Robles - Last Filed: 11/26/24 03:10> Clinical Impression: Mechanical back pain, Abdominal pain Disposition: HOME SELF-CARE Condition: Stable Instructions (If sedation given, give patient instructions): Acute Low Back Pain (ED), Abdominal Pain (ED) Referrals: Jose Chan DO [Primary Care Provider] - 1-2 days
[2024-11-24] MEDS: MORPHINE SULFATE 4 MG/ML SYRINGE IVP STA (01:11)
[2024-11-24] MEDS: KETOROLAC 15 MG/ML 1 ML VIAL IVP STA (01:14)
[2024-11-24] MEDS: ACETAMINOPHEN TAB 500 MG TAB PO STA (01:14)
[2024-11-24 01:15] LABS: Basophils # (A) 0.06 10*3/uL (0.00-0.10); Basophils % (A) 0.7 %; Eosinophils # (A) 0.19 10*3/uL (0.04-0.35); Eosinophils % (A) 2.2 %; HCT 40.8 % (37.2-46.3); HGB 13.3 g/dL (12.0-15.0); Lymphocytes # (A) 2.05 10*3/uL (0.90-5.00); Lymphocytes % (A) 24.3 %; MCHC 32.6 g/dL (32.0-37.0); MCV 88.9 fL (80.0-97.0); Mean Platelet Volume 11.4 fL (9.5-12.2); Monocytes # (A) 0.69 10*3/uL (0.20-1.00); Monocytes % (A) 8.2 %; Neutrophils # (A) 5.43 10*3/uL (1.80-7.70); Neutrophils % (A) 64.2 %; Platelet Count 222 10*3/uL (140-440); RBC 4.59 10*6/uL (4.10-5.20); RDW 12.2 % (11.5-14.5); WBC 8.45 10*3/uL (4.50-10.00)
[2024-11-24] MEDS: ONDANSETRON 4 MG/2 ML VIAL IVP STA (01:15)
[2024-11-24] MEDS: SODIUM CHLORIDE 0.9% 1,000 ML IV STA ×2 (01:22→03:17)
[2024-11-24 01:27] LABS: ALT 16 U/L (4-34); AST 21 U/L (14-36); African American GFR (CKD) >90 (>60 ml/min/1.73 sqM); Albumin 4.2 g/dL (3.5-5.0); Alkaline Phosphatase 64 U/L (38-126); Anion Gap 7 mmol/L; Blood Urea Nitrogen 16 mg/dL (7-17); Calcium 9.1 mg/dL (8.4-10.2); Carbon Dioxide 26 mmol/L (22-30); Chloride 104 mmol/L (98-107); Glucose 100 mg/dL (74-99); Lipase 96 U/L (23-300); Non-African American GFR(CKD) >90 (>60 ml/min/1.73 sqM); Sodium 137 mmol/L (137-145); Total Bilirubin 0.4 mg/dL (0.2-1.3); Total Protein 6.8 g/dL (6.3-8.2)
[2024-11-24 02:11] LABS: Appearance,Urine Cloudy (Clear); Bacteria,Urine Rare /hpf; Bilirubin,Urine Negative (Negative); Blood,Urine Negative (Negative); Color,Urine Light Yellow; Glucose,Urine (UA) Negative (Negative); Ketones,Urine Negative (Negative); Leukocyte Esterase,Urine Large (Negative); Mucus,Urine Few /hpf; Nitrite,Urine Negative (Negative); Protein,Urine Trace (Negative); RBC,Urine 3 /hpf (0-5); Specific Gravity,Urine 1.033 (1.001-1.035); Squamous Epithelial Cell,Urine 9 /hpf (0-4); Urobilinogen,Urine <2.0 mg/dL (<2.0); WBC,Urine 5 /hpf (0-5)
[2024-11-24] MEDS: HYDROmorphone 0.5 MG/0.5 ML SYRINGE IVP STA (02:44)
[2024-11-24 03:37] VITALS: RESP 16; TEMP 98.3
--- NOTE | 2024-11-24 04:22 | CT ---
EXAM: CT Abdomen and Pelvis Without Intravenous Contrast CLINICAL HISTORY: ITS.REASON CT Reason: Back pain, nausea/vomiting, history of stones TECHNIQUE: Axial computed tomography images of the abdomen and pelvis without intravenous contrast. CTDI is 11.5 mGy and DLP is 729.5 mGy-cm. This CT exam was performed using one or more of the following dose reduction techniques: automated exposure control, adjustment of the mA and/or kV according to patient size, and/or use of iterative reconstruction technique. COMPARISON: No relevant prior studies available. FINDINGS: Limitations: Limited evaluation in the absence of contrast. Lung bases: Unremarkable. No mass. No consolidation. ABDOMEN: Liver: Unremarkable. Gallbladder and bile ducts: Unremarkable. No calcified stones. No ductal dilation. Pancreas: Unremarkable. No ductal dilation. Spleen: Unremarkable. No splenomegaly. Adrenals: Unremarkable. No mass. Kidneys and ureters: No evidence of obstructive renal calculi or signs of collecting system dilatation. Nonobstructive 4 mm calculus within the interpolar right kidney. Stomach and bowel: No evidence of bowel obstruction. No mucosal thickening. PELVIS: Appendix: Normal appendix. Bladder: Unremarkable. No stones. Reproductive: 3.1 cm right ovarian cyst. ACR White Paper guidelines (Moffett, et. al. JACR 2020;17(2):248-254) suggest no follow-up is necessary. ABDOMEN and PELVIS: Intraperitoneal space: Unremarkable. No free air. No significant fluid collection. Bones/joints: No acute fracture. No dislocation. Soft tissues: Unremarkable. Vasculature: Unremarkable. No abdominal aortic aneurysm. Lymph nodes: Unremarkable. No enlarged lymph nodes. IMPRESSION: 1. No evidence of obstructive renal calculi or signs of collecting system dilatation. 2. Nonobstructive 4 mm calculus within the interpolar right kidney. 3. Normal appendix. 4. No evidence of bowel obstruction. 5. 3.1 cm right ovarian cyst. ACR White Paper guidelines (Moffett, et. al. JACR 2020;17(2):248-254) suggest no follow-up is necessary. 6. Other incidental findings as described.
[2024-11-24] MEDS: HYDROmorphone 1 MG/ML 1 ML SYRINGE IVP STA (04:37)
[2024-11-24] MEDS: diphenhydrAMINE 50 MG/ML 1 ML VIAL IVP STA (04:38)
[2024-11-24] MEDS: PROCHLORPERAZINE INJ 10 MG/2 ML VIAL IVP STA (04:41)
[2024-11-24 05:29] VITALS: BP 106/67; PULSE 57
[2024-11-24] MEDS: ONDANSETRON 4 MG ODT STARTER PACK 2 TAB BTL PO STA (05:58)
[2024-11-24] MEDS: traMADol 50 MG STARTER PACK 3 TAB BTL PO STA (05:59)
== END 2024-11-24 06:00 | disposition home or self-care (01) ==
LOC: EC 23:45
DX: N20.0 Calculus of kidney (principal); N83.201 Unspecified ovarian cyst, right side; Z91.030 Bee allergy status
CPT/HCPCS: 99284 ×2; 96374 ×2; 96375 ×3; 96376 ×2; 96361 ×2; 36415; 80053; 83605; 83690; 85025; 81001; 81025; 74176; J1200; J0780; J2405; J1171 ×2; J1885; S0119